=== PATIENT | female | born 1960 | race Caucasian/White ===

== ENCOUNTER 2016-11-10 04:10 | Inpatient (IN) | payer OTHER ==
[2016-11-10] MEDS ORDERED: IPRATROPIUM/ALBUTEROL 3 ML DEYVIAL ONE (04:25)
[2016-11-10] MEDS ORDERED: IPRATROPIUM/ALBUTEROL 3 ML DEYVIAL IH ONE (04:27)
--- NOTE | 2016-11-10 04:47 | CPEKG ---
Heart Rate: 96 RR Interval: 625 P-R Interval: 160 QRSD Interval: 80 QT Interval: 336 QTC Interval: 425 P Ashby: 59 QRS Ashby: 178 T Wave Ashby: -45 EKG Severity - ABNORMAL ECG - EKG Impression: SINUS RHYTHM EKG Impression: ATRIAL PREMATURE COMPLEX EKG Impression: CONSIDER RVH W/ SECONDARY REPOL ABNORMALITY Electronically Signed By: Marika Kasper 10-Nov-2016 07:40:18
[2016-11-10 04:58] LABS: ADD DIFF? NO; ADD MORPH? YES; ADD SCAN? NO; ATYPICAL LYMPHOCYTE FLAG 10 (0-99); FRAGMENT RBC FLAG 20 (0-99); LEFT SHIFT FLG 0 (0-99); LIPEMIA HEMOLYSIS FLAG 80 (0-99); MEAN CELL HEMOGLOBIN CONCENTR. 30.1 g/dL (32.4-36.7); MEAN CELL VOLUME 83.3 fL (81.5-99.8); MEAN PLATELET VOLUME 10.3 fL (8.7-11.7); PLATELET CLUMPS FLAG 0 (0-99); PLATELET COUNT 257 10^3/uL (150-400); RED BLOOD CELL COUNT 7.59 10^6/uL (4.18-5.33)
[2016-11-10 05:09] LABS: RED CELL DISTRIBUTION WIDTH 20.8 % (11.5-15.2)
[2016-11-10 05:11] LABS: HEMATOCRIT 63.2 % (38.0-47.0)
--- NOTE | 2016-11-10 05:13 | EDPHY ---
H & P Stated Complaint: sob HPI/ROS: HPI The patient presents with shortness of breath which has been present for the last 2 weeks, getting progressively worse. She lives in a small house and says just walking from her room to the bathroom causes dyspnea. She has to sleep in a recliner because she has some shortness of breath when she lays flat, it also bothers her knees. She says for the last 5 months she has had lower extremity edema, however over the last 1 week has noticed that she has swelling in her abdomen as well and this is making it hard for her to breathe. She denies any cough or chest pain. She says she has osteoarthritis of her knees though denies any other medical problems, she says she has not been to a doctor in 20 years and does not leave the house very much because she has osteoarthritis of her knees. She smokes 2 packs per day and has been a heavy cigarette smoker since the age of 10. REVIEW OF SYSTEMS Constitutional: No fever, no chills. Eyes: No discharge. ENT: No sore throat. Cardiovascular: See HPI Respiratory: See HPI Gastrointestinal: No abdominal pain, no vomiting. Genitourinary: No hematuria. Musculoskeletal: No back pain. Skin: No rashes. Neurological: No headache. PMHx: Osteoarthritis of both knees Soc Hx: Mostly homebound, used to work as a [employer], heavy tobacco use PHYSICAL General Appearance: Alert, mild respiratory distress Eyes: Pupils equal and round no pallor or injection ENT, Mouth: Mucous membranes moist Respiratory: Slightly tachypneic, no retractions, coarse breath sounds at both bases Cardiovascular: Regular rate and rhythm Gastrointestinal: Abdomen is soft and distended, there is no tenderness Neurological: A&O, moves all extremities Skin: Warm and dry, no rashes Musculoskeletal: Neck is supple non tender Extremities: symmetrical, lower extremities are diffusely erythematous and edematous without any pitting Psychiatric: Patient is oriented X 3, there is no agitation Source: Patient, Family - Personal History Current Tetanus/Diphtheria Vaccine: No Current Tetanus Diphtheria and Acellular Pertussis (TDAP): No - Medical/Surgical History Hx Asthma: Yes Hx Chronic Respiratory Disease: No Hx Diabetes: No Hx Cardiac Disease: No Hx Renal Disease: No Hx Cirrhosis: No Hx Alcoholism: No Hx HIV/AIDS: No Hx Splenectomy or Spleen Trauma: No Other PMH: osteo arthritis - Social History Smoking Status: Current every day smoker Constitutional: Initial Vital Signs Temperature (C) 36.7 C 11/10/16 04:20 Heart Rate 97 11/10/16 04:20 Respiratory Rate 30 H 11/10/16 04:20 Blood Pressure 148/83 H 11/10/16 04:20 O2 Sat (%) 79 L 11/10/16 04:20 O2 Delivery Mode Nasal Cannula O2 (L/minute) 4 Allergies/Adverse Reactions: codeine Allergy (Verified 11/10/16 04:18) diphenhydramine [From Benadryl] Allergy (Verified 11/10/16 04:18) naproxen Allergy (Verified 11/10/16 04:18) Home Medications: Medication Instructions Recorded Mucinex 11/10/16 Medical Decision Making - Diagnostics EKG Interpretation: EKG: Complete interpretation has been separately recorded in the [facility] archive. Summary impression: Right axis, T-wave inversions in 2, 3, AVF, V2 through V4 Imaging Results: Chest x-ray two view shows cardiomegaly with signs of pulmonary edema, interpreted by me, radiology interpretation is pending. Procedures: Bedside cardiac Ultrasound- performed and interpreted by me. Indication: Dyspnea Findings: Diminished EF with no pericardial effusion, dilated IVC, B lines are not present Impression: CHF likely ED Course/Re-evaluation: In the emergency room, she was placed on supplemental oxygen, she was given a DuoNeb with some improvement in her symptoms. Labs and studies were performed which were suggestive for CHF, as well as polycythemia which may be due to chronic hypoxia, she was given a dose of Lasix. Given her heavy smoking history, there may be a component of COPD as well. Given her hypoxia she will require admission, I have discussed the case with the hospitalist Dr. Payton Garcia who will admit the patient. Differential Diagnosis: This is a 56-year-old female with history of osteoarthritis, no significant other past medical history, however limited medical contacts, she presents with shortness of breath which is progressive over the last week associated with lower extremity and now abdominal edema. On exam, she is tachypneic, hypoxic, exhibiting signs of fluid overload. Differential diagnosis includes decompensated CHF, COPD with exacerbation pneumonia pulmonary embolism, renal or hepatic failure resulting in fluid overload. - Data Points Laboratory Results: Laboratory Results 11/10/16 04:27 11/10/16 04:27 11/10/16 11/10/16 04:27 04:27 WBC 10.38 10^3/uL H 10^3/uL (3.80-9.50) RBC 7.59 10^6/uL H 10^6/uL (4.18-5.33) Hgb 19.0 g/dL H g/dL (12.6-16.3) Hct 63.2 % H* % (38.0-47.0) MCV 83.3 fL fL (81.5-99.8) MCH 25.0 pg L pg (27.9-34.1) MCHC 30.1 g/dL L g/dL (32.4-36.7) RDW 20.8 % H % (11.5-15.2) Plt Count 257 10^3/uL 10^3/uL (150-400) MPV 10.3 fL fL (8.7-11.7) Neut % (Auto) 74.1 % % (39.3-74.2) Lymph % (Auto) 15.5 % % (15.0-45.0) [place] % (Auto) 7.4 % % (4.5-13.0) Eos % (Auto) 1.5 % % (0.6-7.6) Baso % (Auto) 0.5 % % (0.3-1.7) Nucleat RBC Rel Count 0.0 % % (0.0-0.2) Absolute Neuts (auto) 7.69 10^3/uL H 10^3/uL (1.70-6.50) Absolute Lymphs (auto) 1.61 10^3/uL 10^3/uL (1.00-3.00) Absolute Monos (auto) 0.77 10^3/uL 10^3/uL (0.30-0.80) Absolute Eos (auto) 0.16 10^3/uL 10^3/uL (0.03-0.40) Absolute Basos (auto) 0.05 10^3/uL 10^3/uL (0.02-0.10) Absolute Nucleated RBC 0.00 10^3/uL 10^3/uL (0-0.01) Immature Gran % 1.0 % % (0.0-1.1) Immature Gran # 0.10 10^3/uL 10^3/uL (0.00-0.10) Platelet Estimate ADEQUATE (ADEQ) Polychromasia 1+ H Hypochromasia 1+ H Sodium 138 mEq/L mEq/L (134-144) Potassium 4.8 mEq/L mEq/L (3.5-5.2) Chloride 101 mEq/L mEq/L (97-110) Carbon Dioxide 30 mEq/l mEq/l (22-31) Anion Gap 7 mEq/L L mEq/L (8-16) BUN 15 mg/dL mg/dL (7-23) Creatinine 0.7 mg/dL mg/dL (0.6-1.0) Estimated GFR > 60 Glucose 116 mg/dL H mg/dL (70-100) Calcium 9.5 mg/dL mg/dL (8.5-10.4) Troponin I 0.030 ng/mL ng/mL (0-0.034) NT-Pro-B Natriuret Pep 1740 pg/mL H pg/mL (0-125) Medications Given: Discontinued Medications Albuterol/Ipratropium (Duoneb) 3 ml IH EDNOW ONE Stop: 11/10/16 04:28 Last Admin: 11/10/16 04:25 Dose: 3 ml Departure - Departure Disposition: [facility] Inpatient Acute Clinical Impression: Hypoxia, Polycythemia Acute exacerbation of congestive heart failure Qualifiers: Congestive heart failure type: unspecified congestive heart failure type Qualified Code(s): I50.9 - Heart failure, unspecified Fluid overload Qualifiers: Hypervolemia type: unspecified Qualified Code(s): E87.70 - Fluid overload, unspecified Condition: Fair Referrals: NONE *PRIMARY CARE P,. [Primary Care Provider] - As per Instructions
[2016-11-10 05:18] LABS: ANION GAP 7 mEq/L (8-16); CALCIUM 9.5 mg/dL (8.5-10.4); CARBON DIOXIDE 30 mEq/l (22-31); CHLORIDE 101 mEq/L (97-110); CREATININE 0.7 mg/dL (0.6-1.0); GLOMERULAR FILTRATION RATE > 60; GLUCOSE 116 mg/dL (70-100); POTASSIUM 4.8 mEq/L (3.5-5.2); SODIUM 138 mEq/L (134-144)
[2016-11-10] MEDS ORDERED: FUROSEMIDE 20 MG/2 ML VIAL IVP ONE (05:52)
[2016-11-10 06:04] LABS: HYPOCHROMIA 1+; PLATELET ESTIMATE ADEQUATE (ADEQ); POLYCHROMASIA 1+
[2016-11-10] MEDS ORDERED: ALBUTEROL 3 ML DEYVIAL IH PRN (07:12)
[2016-11-10] MEDS ORDERED: HYDROmorphONE/DILAUDID 1 MG/ML SYR IVP PRN (07:12)
[2016-11-10] MEDS ORDERED: ACETAMINOPHEN 325 MG TAB PO PRN (07:12)
[2016-11-10] MEDS ORDERED: PROMETHAZINE HCL 25 MG TAB PO PRN (07:12)
[2016-11-10] MEDS ORDERED: NICOTINE POLACRILEX 2 MG GUM B PRN (07:12)
[2016-11-10] MEDS ORDERED: oxyCODONE IR 5 MG TAB PO PRN (07:12)
[2016-11-10] MEDS ORDERED: ONDANSETRON DISINTEGRATING 4 MG TAB PO PRN (07:12)
[2016-11-10] MEDS ORDERED: ZOLPIDEM TARTRATE 5 MG TAB PO PRN (07:12)
[2016-11-10] MEDS ORDERED: ONDANSETRON 4 MG/2 ML VIAL IVP PRN (07:12)
[2016-11-10] MEDS ORDERED: NICOTINE 21 MG/24 HR PATCH TD ONE (07:22)
[2016-11-10] MEDS: NICOTINE 21 MG/24 HR PATCH TD SCH (07:34)
--- NOTE | 2016-11-10 08:14 | PDGENHP ---
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 She initially attributed the swelling to haven taken advil but then noted it did not go away. She gets extremely short of breath when walking even a few steps. She does not really leave the house due to chronic knee pain and now worsening shortness of breath. She often notes wheezing and her notes that she at times looks cardozo/ashen when she is feeling sob. While in the ER, she went to the bathroom without her O2 on, and when she returned to her room she was noted to be cyanotic and O2 sats of 66%. She has had headache for the last month and also has had left sided flank pain that she believes to be kidney pain. She denies chest pain, she has chronic knee pain but no pain in her calves other than the skin feeling tight. History Information - Allergies/Home Medication List Allergies/Adverse Reactions: codeine Allergy (Verified 11/10/16 04:18) diphenhydramine [From Benadryl] Allergy (Verified 11/10/16 04:18) naproxen Allergy (Verified 11/10/16 04:18) Home Medications: Mucinex 11/10/16 [Last Taken Unknown] I have personally reviewed and updated: family history, medical history, social history, surgical history Past Medical History: chronic knee pain. longstanding tobacco use. no known medical issues but not seeing an MD x 30 years - Surgical History Additional surgical history: Left knee arthroscopy - Family History Positive for: mother with history of CAD younger than 65 (mother with PR at 60) , stroke (father with stroke, neck issues) - Social History Smoking Status: Current every day smoker (2 packs per day, smoking since 10 years old, 80-100 pack years) Tobacco Use: Cigarettes Alcohol Use: Rarely Drug Use: Marijuana Additional social history: , 4 children and 9 grandchildren all live out of state, patient does not work and is largely home bound Review of Systems ROS: 10pt was reviewed & negative except for what was stated in HPI & below Physical Exam Temp Pulse Resp BP Pulse Ox 36.9 C 91 20 100/70 88 L 11/10/16 07:36 11/10/16 07:36 11/10/16 07:36 11/10/16 07:36 11/10/16 07:36 O2 (L/minute) 4 Constitutional: appears nourished, chronically ill appearing Eyes: PERRL, scleral injection Ears, Nose, Mouth, Throat: moist mucous membranes, hearing normal Cardiovascular: regular rate and rhythym, no murmur, rub, or gallop, edema (2-3 + tense edema to the sacrum) Respiratory: no respiratory distress, reduced air movement, expiratory wheeze, inspiratory crackles Gastrointestinal: normoactive bowel sounds, soft, non-tender abdomen Genitourinary: no bladder tenderness Skin: warm, normal color Musculoskeletal: full muscle strength, muscular tenderness, No asymmetric calves Neurologic: AAOx3 Psychiatric: interacting appropriately, not anxious, not encephalopathic Lab Data & Imaging Review 11/10/16 04:27 11/10/16 04:27 WBC 10.38 10^3/uL (3.80-9.50) H 11/10/16 04:27 RBC 7.59 10^6/uL (4.18-5.33) H 11/10/16 04:27 Hgb 19.0 g/dL (12.6-16.3) H 11/10/16 04:27 Hct 63.2 % (38.0-47.0) H* 11/10/16 04:27 MCV 83.3 fL (81.5-99.8) 11/10/16 04:27 MCH 25.0 pg (27.9-34.1) L 11/10/16 04:27 MCHC 30.1 g/dL (32.4-36.7) L 11/10/16 04:27 RDW 20.8 % (11.5-15.2) H 11/10/16 04:27 Plt Count 257 10^3/uL (150-400) 11/10/16 04:27 MPV 10.3 fL (8.7-11.7) 11/10/16 04:27 Neut % (Auto) 74.1 % (39.3-74.2) 11/10/16 04:27 Lymph % (Auto) 15.5 % (15.0-45.0) 11/10/16 04:27 [place] % (Auto) 7.4 % (4.5-13.0) 11/10/16 04:27 Eos % (Auto) 1.5 % (0.6-7.6) 11/10/16 04:27 Baso % (Auto) 0.5 % (0.3-1.7) 11/10/16 04:27 Nucleat RBC Rel Count 0.0 % (0.0-0.2) 11/10/16 04:27 Absolute Neuts (auto) 7.69 10^3/uL (1.70-6.50) H 11/10/16 04:27 Absolute Lymphs (auto) 1.61 10^3/uL (1.00-3.00) 11/10/16 04:27 Absolute Monos (auto) 0.77 10^3/uL (0.30-0.80) 11/10/16 04:27 Absolute Eos (auto) 0.16 10^3/uL (0.03-0.40) 11/10/16 04:27 Absolute Basos (auto) 0.05 10^3/uL (0.02-0.10) 11/10/16 04:27 Absolute Nucleated RBC 0.00 10^3/uL (0-0.01) 11/10/16 04:27 Immature Gran % 1.0 % (0.0-1.1) 11/10/16 04:27 Immature Gran # 0.10 10^3/uL (0.00-0.10) 11/10/16 04:27 Platelet Estimate ADEQUATE (ADEQ) 11/10/16 04:27 Polychromasia 1+ H 11/10/16 04:27 Hypochromasia 1+ H 11/10/16 04:27 Sodium 138 mEq/L (134-144) 11/10/16 04:27 Potassium 4.8 mEq/L (3.5-5.2) 11/10/16 04:27 Chloride 101 mEq/L (97-110) 11/10/16 04:27 Carbon Dioxide 30 mEq/l (22-31) 11/10/16 04:27 Anion Gap 7 mEq/L (8-16) L 11/10/16 04:27 BUN 15 mg/dL (7-23) 11/10/16 04:27 Creatinine 0.7 mg/dL (0.6-1.0) 11/10/16 04:27 Estimated GFR > 60 11/10/16 04:27 Glucose 116 mg/dL (70-100) H 11/10/16 04:27 Calcium 9.5 mg/dL (8.5-10.4) 11/10/16 04:27 Troponin I 0.030 ng/mL (0-0.034) 11/10/16 04:27 NT-Pro-B Natriuret Pep 1740 pg/mL (0-125) H 11/10/16 04:27 Visualized and Interpreted Chest x-ray results: Yes Chest X-Ray results: other (CM, pulmonary edema) Visualized and Interpreted EKG results: Yes EKG Interpretation: Positive for: normal sinsus rhythm Assessment & Plan Assessment: 56 yo F with longstanding tobacco use hx presenting with acute hypoxic respiratory failure with o2 sats as low as 66% on RA in ER # acute hypoxic respiratory failure: likely more acute on chronic given evidence of likely chronicity with lower extremity edema, erythrocytosis and only relatively minor sxs despite o2 sats of 66%. Given tobacco hx, for sure underlying copd as next. Also suspect right sided heart failure/cor pulmonale. For now plan is for supplemental o2, IV lasix, bronchodilators, prednisone, azithromycin. CT versus CTA pending d dimer result for further evaluation of lung parenchyma and consideration for concurrent PE. Echo and BLE US pending. # copd with acute exacerbation: as above, not previously diagnosed. Duonebs, albuterol, pred, azithro. Further imaging likely warranted, pending d dimer result. # polycythemia: likely related to secondary erythrocytosis related to chronic hypoxia, will trend # acute right sided heart failure: in the setting of likely chronic profound hypoxia and possible contribution of joshua given hx of snoring and per patient apnea as a child. Echo pending, supplemental o2. Will need sleep study as an OP. IV lasix given in ER, will continue and aim for gentle diuresis as patient likely preload dependent with presumed cor pulmonale. # tobacco use and dependency: smoking 46 years, heavy smoker as above. Counseled regarding need for cessation, nicotine patch/gum while in house # dvt ppx: lmwh FC Patient new to my care. Old records reviewed and summarized as above. Care plan reviewed with ER doctor including plans for echo. Further hx obtained from patients present at bedside.
[2016-11-10 09:14] LABS: ALBUMIN 3.8 g/dL (3.5-5.0); BILIRUBIN,TOTAL 1.2 mg/dL (0.1-1.4); BILIRUBIN-CONJUGATED 0.6 mg/dL (0.0-0.5); BILIRUBIN-UNCONJUGATED 0.6 mg/dL (0.0-1.1); TOTAL PROTEIN 6.8 g/dL (6.3-8.2)
[2016-11-10] MEDS: AZITHROMYCIN IV 500 MG in D5W 250 ML IV SCH (10:44)
[2016-11-10] MEDS: predniSONE 20 MG TAB PO SCH (10:44)
[2016-11-10] MEDS: ENOXAPARIN 40 MG/0.4 ML SYR SC SCH (10:47)
[2016-11-10] MEDS: IPRATROPIUM/ALBUTEROL 3 ML DEYVIAL IH SCH ×3 (10:49→21:29)
[2016-11-10] MEDS: ACETYLCYSTEINE 10% 30 ML VIAL IH SCH ×3 (10:49→21:29)
[2016-11-10] MEDS ORDERED: IOPAMIDOL (ISOVUE 370) 100 ML BTL IV ONE (13:15)
[2016-11-10] MEDS ORDERED: DEXTROMETHORPHAN PO PRN (13:39)
[2016-11-10] MEDS ORDERED: GUAIFENESIN PO PRN (13:39)
[2016-11-10] MEDS ORDERED: [UNRECOGNIZED DRUG - OTHER] PO PRN (13:39)
[2016-11-10] MEDS ORDERED: ASPIRIN 325 MG TAB PO PRN (13:39)
--- NOTE | 2016-11-10 13:43 | ECHO ---
[id number] + + [phone] : : [place] [address] : : [phone] + + Adult Echocardiographic Report + ------+ :Name: CORTNEY KUHN LStudy Date: 11/10/2016 10:05 AM : : Hospital Admission Number: [id number] Locatio n: 215: :: 1960 Gender: Female Height: 66 in : :Age: 56 yrs Race: WH Weight: 250 lb : :Reason For Study: COPD/lower extremity edema/question CHF/cor : :pulmonale BSA: 2.2 meters 2 : + ------+ MMode/2D Measurements \T\ Calculations IVSd: 1.1 cm LVIDd: 5.5 cm FS: 38.7 % Ao root diam: 3.7 cm LVPWd: 1.1 cm LVIDs: 3.4 cm EDV(Teich): 146.3 ml LA dimension: 3.7 cm ESV(Teich): 46.2 ml EF(Teich): 68.4 % Normal Measurement Values: + + :LVIDd (3.5-5.7cm) IVSd (0.6-1.1cm) LVPWd (0.6-1.1cm) Aortic Root (2.0-3.7cm)Left Atrium (1.5-4.0cm): :LV Vol(d) (76-115ml) LV Vol(s) (29-48ml) Ejec Fraction (50-65%)PV Ton (0.6- 1.2m/s) TV Ton (0.4-1.0m/s) : :MV E Ton (0.8-1.0m/s)MV A Ton (0.3-1.0m/s)LVOT Ton (0.7-1.2m/s) Asc Ao Ton ( 0.9-1.8m/s) : + + Doppler Measurements \T\ Calculations MV E max ton: 90.3 cm/sec Ao mean P.6 mmHg TR max ton: 306.8 cm/sec MV A max ton: 83.9 cm/sec Ao V2 mean: 130.0 cm/sec TR max P.6 mmHg MV E/A: 1.1 Ao V2 VTI: 35.0 cm RAP systole: 10.0 mmHg RVSP(TR): 47.6 mmHg Left Ventricle The left ventricle is normal in size. There is mild concentric left ventricular hypertrophy. Left ventricular systolic function is normal. Ejection Fraction = 65-70%. Grade I diastolic dysfunction with elevated LV filling pressures. No regional wall motion abnormalities noted. Right Ventricle The right ventricle is moderately dilated. The right ventricular systolic function is moderately reduced. Atria The left atrial size is normal. The right atrium is mildly dilated. Mitral Valve The mitral valve is normal in structure and function. There is no evidence of mitral valve prolapse. There is no mitral valve stenosis. Tricuspid Valve Normal tricuspid valve. There is mild tricuspid regurgitation. Right ventricular systolic pressure is 48mmHg. There is Doppler evidence for mild pulmonary hypertension. Aortic Valve The aortic valve is trileaflet. The aortic valve opens well. There is no aortic stenosis. There is no aortic insufficiency. Pulmonic Valve The pulmonic valve is normal in structure and function. There is no pulmonic valvular regurgitation. Great Vessels The aortic root is normal size. Pericardium/Pleural There is no pericardial effusion. Conclusion A complete two-dimensional transthoracic echocardiogram was performed (2D, M-mode, Doppler and color flow Doppler). Left ventricular systolic function is normal. There is mild concentric left ventricular hypertrophy. Ejection Fraction = 65-70%. Grade I diastolic dysfunction with elevated LV filling pressures The right ventricle is moderately dilated. The right ventricular systolic function is moderately reduced. The right atrium is mildly dilated. There is mild tricuspid regurgitation. Right ventricular systolic pressure is 48mmHg. There is Doppler evidence for mild pulmonary hypertension. No prior echo Final Reading Physician: Dr Sarah Martin electronically signed on 11/10/2016 01:41 PM Ordering Physician: Payton Garcia Performed By: Hodan Zelaya, MATHIEUCS
--- NOTE | 2016-11-10 16:01 | HOSPPROG ---
Hospitalist Progress Note Assessment/Plan: 56 yo F with longstanding tobacco use hx presenting with acute hypoxic respiratory failure with o2 sats as low as 66% on RA in ER # suspect acute on chronic hypoxic respiratory failure - continue supplemental o2, IV lasix, bronchodilators, prednisone, azithromycin. - CTA chest was ordered given her positive D-dimer that was negative for PE # copd with acute exacerbation - plan as per above # polycythemia: likely related to secondary erythrocytosis related to chronic hypoxia, will trend #Prominent mediastinal and hilar lymph nodes and an indeterminate left adrenal nodule - interval 3 month follow-up of the hilar lymphadenopathy should be done as well as further followup of her adrenal lesion # acute right sided heart failure: in the setting of likely chronic profound hypoxia and possible contribution of joshua given hx of snoring and per patient apnea as a child. Echo is consistent with pulmonary hypertension - outpatient sleep study # tobacco use and dependency: smoking 46 years, heavy smoker as above. Counseled regarding need for cessation, nicotine patch/gum while in house # dvt ppx: lmwh FC Subjective: improved shortness of breath since starting supplemental oxygen. denies chest pain Objective: Vital Signs Temp Pulse Resp BP Pulse Ox 37.1 C 88 16 116/62 93 11/10/16 12:51 11/10/16 12:51 11/10/16 12:51 11/10/16 12:51 11/10/16 12:51 11/09/16 11/10/16 11/11/16 05:59 05:59 05:59 Output Total 1550 Balance -1550 - Physical Exam Constitutional: no apparent distress, appears nourished, not in pain Cardiovascular: regular rate and rhythym, no murmur, rub, or gallop Respiratory: no respiratory distress, reduced air movement, expiratory wheeze ICD10 Worksheet Patient Problems: Problems Problem Status Onset Acute exacerbation of congestive heart failure Acute Hypoxia Acute Fluid overload Acute Polycythemia Acute
[2016-11-10] MEDS: GUAIFENESIN/DM 10 ML UDCUP PO PRN (19:08)
[2016-11-10] MEDS: guaiFENesin 600 MG TAB.ER PO SCH (21:13)
[2016-11-11 05:00] LABS: % IMMATURE GRANULYOCYTES 0.7 % (0.0-1.1); ABSOLUTE IMMATURE GRANULOCYTES 0.07 10^3/uL (0.00-0.10); ADD DIFF? NO; ADD MORPH? YES; ADD SCAN? NO; ATYPICAL LYMPHOCYTE FLAG 0 (0-99); FRAGMENT RBC FLAG 20 (0-99); HEMATOCRIT 59.9 % (38.0-47.0); HEMOGLOBIN 17.3 g/dL (12.6-16.3); LEFT SHIFT FLG 0 (0-99); LIPEMIA HEMOLYSIS FLAG 70 (0-99); MEAN CELL HEMOGLOBIN 24.7 pg (27.9-34.1); MEAN CELL VOLUME 85.7 fL (81.5-99.8); MEAN PLATELET VOLUME 10.5 fL (8.7-11.7); PLATELET CLUMPS FLAG 0 (0-99); PLATELET COUNT 231 10^3/uL (150-400); RED BLOOD CELL COUNT 6.99 10^6/uL (4.18-5.33)
[2016-11-11 05:04] LABS: MEAN CELL HEMOGLOBIN CONCENTR. 28.9 g/dL (32.4-36.7); RED CELL DISTRIBUTION WIDTH 20.5 % (11.5-15.2)
[2016-11-11 05:06] LABS: ANION GAP 9 mEq/L (8-16); CALCIUM 8.6 mg/dL (8.5-10.4); CARBON DIOXIDE 32 mEq/l (22-31); CHLORIDE 102 mEq/L (97-110); CREATININE 0.7 mg/dL (0.6-1.0); GLOMERULAR FILTRATION RATE > 60; GLUCOSE 93 mg/dL (70-100); MAGNESIUM 2.3 mg/dL (1.6-2.3); POTASSIUM 4.7 mEq/L (3.5-5.2); SODIUM 143 mEq/L (134-144)
[2016-11-11] MEDS: IPRATROPIUM/ALBUTEROL 3 ML DEYVIAL IH SCH ×4 (05:07→21:59)
[2016-11-11] MEDS: ACETYLCYSTEINE 10% 30 ML VIAL IH SCH ×4 (05:07→21:59)
[2016-11-11 05:24] LABS: HYPOCHROMIA 1+; MACROCYTES 1+; MICROCYTES 1+; PLATELET ESTIMATE ADEQUATE (ADEQ); POLYCHROMASIA 1+
[2016-11-11] MEDS ORDERED: Herbals/Supplements -Info Only PO SCH (09:00)
[2016-11-11] MEDS: NICOTINE 21 MG/24 HR PATCH TD SCH (09:09)
[2016-11-11] MEDS: predniSONE 20 MG TAB PO SCH (09:10)
[2016-11-11] MEDS: guaiFENesin 600 MG TAB.ER PO SCH ×2 (09:11→21:35)
[2016-11-11] MEDS: ACETAMINOPHEN 325 MG TAB PO SCH (09:11)
[2016-11-11] MEDS: ENOXAPARIN 40 MG/0.4 ML SYR SC SCH (09:11)
[2016-11-11] MEDS: AZITHROMYCIN IV 500 MG in D5W 250 ML IV SCH (09:14)
--- NOTE | 2016-11-11 11:18 | HOSPPROG ---
Hospitalist Progress Note Assessment/Plan: 56 yo F with longstanding tobacco use hx presenting with acute hypoxic respiratory failure with o2 sats as low as 66% on RA in ER # suspect acute on chronic hypoxic respiratory failure due to cor pulmonale - continue supplemental o2, IV lasix, bronchodilators,will prednisone & azithromycin. - CTA chest was ordered given her positive D-dimer that was negative for PE # suspected underlying copd unsure of acute exacerbation - plan as per above # polycythemia: likely related to secondary erythrocytosis related to chronic hypoxia, will trend #Prominent mediastinal and hilar lymph nodes and an indeterminate left adrenal nodule - interval 3 month follow-up of the hilar lymphadenopathy should be done as well as further followup of her adrenal lesion # acute right sided heart failure: in the setting of likely chronic profound hypoxia and possible contribution of joshua given hx of snoring and per patient apnea as a child. Echo is consistent with pulmonary hypertension - outpatient sleep study # tobacco use and dependency: smoking 46 years, heavy smoker as above. Counseled regarding need for cessation, nicotine patch/gum while in house # dvt ppx: lmwh FC Subjective: continues to have shortness of breath and leg swelling. no fever or chills. wants to quit smoking Objective: Vital Signs Temp Pulse Resp BP Pulse Ox 36.7 C 83 18 107/64 88 L 11/11/16 07:40 11/11/16 07:40 11/11/16 07:40 11/11/16 07:40 11/11/16 07:40 Laboratory Results 11/11/16 04:16 11/11/16 04:16 11/10/16 11/11/16 11/12/16 05:59 05:59 05:59 Intake Total 1870 Output Total 2600 Balance -730 - Physical Exam Constitutional: no apparent distress, appears nourished, not in pain, chronically ill appearing Cardiovascular: regular rate and rhythym, no murmur, rub, or gallop, edema ( bilat legs and ankles) Respiratory: no respiratory distress, inspiratory crackles, No rhonchi Gastrointestinal: normoactive bowel sounds, soft, non-tender abdomen, no palpable masses, No guarding, No rebound Skin: warm, erythema (bilat legs) Neurologic: AAOx3, sensation intact bilaterally ICD10 Worksheet Patient Problems: Problems Problem Status Onset Acute exacerbation of congestive heart failure Acute Hypoxia Acute Fluid overload Acute Polycythemia Acute
[2016-11-11] MEDS: FUROSEMIDE 20 MG/2 ML VIAL IVP SCH (14:20)
[2016-11-11] MEDS: GUAIFENESIN/DM 10 ML UDCUP PO PRN (21:35)
[2016-11-11] MEDS: HYDROCODONE/APAP 5/325 TAB PO PRN (21:35)
[2016-11-12 04:33] LABS: % IMMATURE GRANULYOCYTES 0.5 % (0.0-1.1); ABSOLUTE IMMATURE GRANULOCYTES 0.06 10^3/uL (0.00-0.10); ADD DIFF? NO; ADD MORPH? YES; ADD SCAN? NO; ATYPICAL LYMPHOCYTE FLAG 0 (0-99); FRAGMENT RBC FLAG 20 (0-99); LEFT SHIFT FLG 0 (0-99); LIPEMIA HEMOLYSIS FLAG 70 (0-99); MEAN CELL HEMOGLOBIN 25.3 pg (27.9-34.1); MEAN CELL VOLUME 87.6 fL (81.5-99.8); MEAN PLATELET VOLUME 10.7 fL (8.7-11.7); PLATELET CLUMPS FLAG 20 (0-99); PLATELET COUNT 229 10^3/uL (150-400); RED BLOOD CELL COUNT 7.12 10^6/uL (4.18-5.33)
[2016-11-12 04:49] LABS: ANION GAP 7 mEq/L (8-16); CALCIUM 9.1 mg/dL (8.5-10.4); CARBON DIOXIDE 37 mEq/l (22-31); CHLORIDE 99 mEq/L (97-110); CHOLESTEROL 132 mg/dL (140-220); CHOLESTEROL/HDL RATIO 4.55 RATIO (1.00-4.44); CREATININE 0.6 mg/dL (0.6-1.0); GLOMERULAR FILTRATION RATE > 60; GLUCOSE 88 mg/dL (70-100); HIGH DENSITY LIPOPROTEIN 29 mg/dL (40-85); LOW DENSITY LIPOPROTEIN 87 mg/dL (80-100); MAGNESIUM 2.4 mg/dL (1.6-2.3); NON-HIGH DENSITY LIPOPROTEIN 103 mg/dL (90-129); SODIUM 143 mEq/L (134-144); TRIGLYCERIDE 84 mg/dL (35-135); VERY LOW DENSITY LIPOPROTEINS 16 mg/dL (8-25)
[2016-11-12 04:57] LABS: MEAN CELL HEMOGLOBIN CONCENTR. 28.8 g/dL (32.4-36.7); RED CELL DISTRIBUTION WIDTH 20.5 % (11.5-15.2)
[2016-11-12 04:58] LABS: HEMATOCRIT 62.4 % (38.0-47.0)
[2016-11-12 05:02] LABS: PLATELET ESTIMATE ADEQUATE (ADEQ)
[2016-11-12 05:04] LABS: MACROCYTES 1+; MICROCYTES 1+; POLYCHROMASIA 1+
[2016-11-12] MEDS: IPRATROPIUM/ALBUTEROL 3 ML DEYVIAL IH SCH ×4 (05:17→21:56)
[2016-11-12] MEDS: ACETYLCYSTEINE 10% 30 ML VIAL IH SCH ×2 (05:18→13:00)
[2016-11-12] MEDS: HYDROCODONE/APAP 5/325 TAB PO PRN ×2 (06:39→19:57)
[2016-11-12] MEDS: FUROSEMIDE 20 MG/2 ML VIAL IVP SCH (09:58)
[2016-11-12] MEDS: NICOTINE 21 MG/24 HR PATCH TD SCH (09:58)
[2016-11-12] MEDS: ACETAMINOPHEN 325 MG TAB PO SCH (09:58)
[2016-11-12] MEDS: ENOXAPARIN 40 MG/0.4 ML SYR SC SCH (10:00)
[2016-11-12] MEDS: guaiFENesin 600 MG TAB.ER PO SCH ×2 (10:00→19:57)
[2016-11-12] MEDS ORDERED: FUROSEMIDE 20 MG/2 ML VIAL IVP ONE (10:45)
[2016-11-12] MEDS ORDERED: FUROSEMIDE 20 MG/2 ML VIAL IVP SCH (11:22)
--- NOTE | 2016-11-12 11:29 | HOSPPROG ---
Hospitalist Progress Note Assessment/Plan: 56 yo F with longstanding tobacco use hx presenting with acute hypoxic respiratory failure with o2 sats as low as 66% on RA in ER # suspect acute on chronic hypoxic respiratory failure due to cor pulmonale with mild pulmonary hypertension by echo - continue supplemental o2, IV lasix, bronchodilators - CTA chest was ordered given her positive D-dimer that was negative for PE -I discussed the case with Dr. Rodriguez who will see the patient in consultation # acute right sided heart failure with increasing weight: in the setting of likely chronic profound hypoxia and possible contribution of joshua given hx of snoring and per patient apnea as a child. Echo is consistent with pulmonary hypertension - fluid restrict -increase lasix to 40mg iv bid -daily weights -outpatient sleep study # suspected underlying copd unsure of acute exacerbation - continue to monitor off of prednisone # polycythemia: likely related to secondary erythrocytosis related to chronic hypoxia, will trend #Prominent mediastinal and hilar lymph nodes and an indeterminate left adrenal nodule - interval 3 month follow-up of the hilar lymphadenopathy should be done as well as further followup of her adrenal lesion # tobacco use and dependency: smoking 46 years, heavy smoker as above. Counseled regarding need for cessation, nicotine patch while in house -start Wellbutrin as well # dvt ppx: lmwh FC Subjective: still with shortness of breath. no chest pain. legs are still swollen Objective: Vital Signs Temp Pulse Resp BP Pulse Ox 36.9 C 88 12 124/65 H 90 L 11/12/16 07:17 11/12/16 07:17 11/12/16 07:17 11/12/16 07:17 11/12/16 07:17 Laboratory Results 11/12/16 04:09 11/12/16 04:09 11/11/16 11/12/16 11/13/16 05:59 05:59 05:59 Intake Total 1870 4100 Output Total 2600 3100 1000 Balance -730 1000 -1000 - Physical Exam Constitutional: chronically ill appearing, obese Ears, Nose, Mouth, Throat: moist mucous membranes, hearing normal, ears appear normal, no oral mucosal ulcers Cardiovascular: regular rate and rhythym, no murmur, rub, or gallop Respiratory: no respiratory distress, no rales or rhonchi, clear to auscultation , No rhonchi Gastrointestinal: normoactive bowel sounds, soft, non-tender abdomen, no palpable masses Genitourinary: no bladder fullness, no bladder tenderness, no renal bruits Skin: erythema (bilat legs) Neurologic: AAOx3, sensation intact bilaterally ICD10 Worksheet Patient Problems: Problems Problem Status Onset Acute exacerbation of congestive heart failure Acute Hypoxia Acute Fluid overload Acute Polycythemia Acute
[2016-11-12] MEDS: FUROSEMIDE 40 MG/4 ML VIAL IVP SCH ×2 (12:46→15:46)
[2016-11-12] MEDS: buPROPion SR 150 MG TAB PO SCH (12:55)
[2016-11-12] MEDS: AZITHROMYCIN 250 MG TAB PO SCH (12:55)
--- NOTE | 2016-11-12 13:31 | GCON ---
[f rep st] CONSULTATION CHEST CONSULTATION REASON FOR CONSULTATION: Chronic obstructive pulmonary disease, acute exacerbation. Pulmonary hype rtension. HISTORY OF PRESENT ILLNESS: The patient is a 56-year-old white female with extensive past medical h istory, including tobacco abuse, chronic knee pain, morbid obesity. She presented to the emergency room with complaints of breathlessness. This occurred over 2 weeks' time. Her cough is productive of thick, tenacious secretions. There is no hemoptysis. She denies any chest pain, pleuritic-type chest pain, or angina equivalent. No fever. No night sweats. Since admission, she has had minimal improvement. She is profoundly hypoxemic and cyanotic when coughing. Echocardiogram and CT scan o f the chest have been performed. PAST MEDICAL HISTORY: Significant for chronic knee pain, tobacco abuse. ALLERGIES: No known allergies to medications. SOCIAL HISTORY: Npm-stnd-y-day smoking history for over 40 years and she quit 4 days ago. No signi ficant alcohol use. Occasional marijuana use. She is , lives at home with her , has good family support. She has not seen a doctor in over 30 years. PHYSICAL EXAMINATION: VITAL SIGNS: Blood pressure is 104/57. Pulse is 91, respirations 17, temper ature 36.5, oxygen saturation 90% on 10 L. GENERAL: She is a morbidly obese 56-year-old white fema le who is in mild respiratory distress. HEENT: Eyes are NABIL, EOMI. Throat shows no erythema or t onsillar hypertrophy. NECK: Supple. There is no cervical adenopathy. HEART: Regular rate and rh ythm with a 2/6 systolic murmur at the left sternal border without radiation. There is a loud P2 co mponent. LUNGS: Diminished breath sounds, few scattered rhonchi, and moderate prolongation of expi ratory phase. There is no wheeze present. ABDOMEN: Soft, nontender. Bowel sounds are present. E XTREMITIES: No clubbing, cyanosis. There is 2+ lower extremity edema. LABORATORIES: White count is 11.6, hemoglobin of 18, hematocrit 62, platelet count 229. Sodium 143 , potassium 5.0, chloride 99, CO2 37, BUN 16, creatinine 0.6. Glucose is 88. TSH elevated at 6.7. CT angiogram of the chest, dated 11/10/16, shows no evidence of PE but shows some bronchitis with at electasis, possible coronary artery disease, enlarged pulmonary artery. Echocardiogram, dated 11/10/16, shows an ejection fraction of 65% to 70%. Right ventricular systoli c pressure is 48. IMPRESSION: 1. Chronic obstructive pulmonary disease with acute exacerbation likely. 2. Probable obstructive sleep apnea. 3. Moderate pulmonary hypertension. 4. Polycythemia. 5. Morbid obesity. 6. Tobacco abuse. RECOMMENDATIONS: 1. We will start IV steroids, consisting of Solu-Medrol 125 q.6. 2. We will start the patient on azithromycin 250 mg per day. 3. Aggressive pulmonary toilet. In this regard, we will increase her Mucomyst to 20% and add an Ac apella or a vest mucus clearing device. 4. PT and OT with ambulation. 5. The patient should follow up with a director sales training after discharge, as she will need an outpatien t sleep study. Thank you very much for allowing me to participate in the care of this interesting patient. We will follow along with you. /[id number]/MODL
[2016-11-12] MEDS: ACETYLCYSTEINE 20% IH/PO 30 ML VIAL IH SCH ×2 (17:25→21:56)
[2016-11-12] MEDS: methylPREDNISolone SOD SUCC 125 MG/2 ML VIAL IVP SCH ×2 (18:15→23:09)
[2016-11-13 03:35] LABS: BICARBONATE 40 mEq/L (22-26); PO2 66 mmHg (65-75)
[2016-11-13 04:18] LABS: % IMMATURE GRANULYOCYTES 0.5 % (0.0-1.1); ABSOLUTE IMMATURE GRANULOCYTES 0.04 10^3/uL (0.00-0.10); ADD DIFF? NO; ADD MORPH? YES; ADD SCAN? NO; ATYPICAL LYMPHOCYTE FLAG 0 (0-99); FRAGMENT RBC FLAG 20 (0-99); HEMOGLOBIN 17.9 g/dL (12.6-16.3); LEFT SHIFT FLG 0 (0-99); LIPEMIA HEMOLYSIS FLAG 70 (0-99); MEAN CELL VOLUME 86.9 fL (81.5-99.8); MEAN PLATELET VOLUME 10.6 fL (8.7-11.7); PLATELET CLUMPS FLAG 10 (0-99); PLATELET COUNT 223 10^3/uL (150-400); RED BLOOD CELL COUNT 7.16 10^6/uL (4.18-5.33)
[2016-11-13 04:20] LABS: MEAN CELL HEMOGLOBIN CONCENTR. 28.8 g/dL (32.4-36.7); RED CELL DISTRIBUTION WIDTH 20.3 % (11.5-15.2)
[2016-11-13 04:25] LABS: HEMATOCRIT 62.2 % (38.0-47.0)
[2016-11-13 04:35] LABS: CALCIUM 9.1 mg/dL (8.5-10.4); CHLORIDE 94 mEq/L (97-110); CREATININE 0.6 mg/dL (0.6-1.0); GLOMERULAR FILTRATION RATE > 60; GLUCOSE 189 mg/dL (70-100); MAGNESIUM 2.3 mg/dL (1.6-2.3); POTASSIUM 4.9 mEq/L (3.5-5.2); SODIUM 141 mEq/L (134-144)
[2016-11-13 04:38] LABS: PCO2 76 mmHg (34-38)
[2016-11-13 04:39] LABS: TCO2 43 mEq/L (23-27)
[2016-11-13 04:47] LABS: ANION GAP 7 mEq/L (8-16); CARBON DIOXIDE 40 mEq/l (22-31)
[2016-11-13] MEDS: ACETYLCYSTEINE 20% IH/PO 30 ML VIAL IH SCH ×4 (04:51→20:55)
[2016-11-13] MEDS: IPRATROPIUM/ALBUTEROL 3 ML DEYVIAL IH SCH ×4 (04:51→20:55)
[2016-11-13 05:05] LABS: MACROCYTES 1+; MICROCYTES 1+; PLATELET ESTIMATE ADEQUATE (ADEQ); POLYCHROMASIA 1+
[2016-11-13] MEDS: methylPREDNISolone SOD SUCC 125 MG/2 ML VIAL IVP SCH ×4 (05:53→23:53)
[2016-11-13] MEDS: ENOXAPARIN 40 MG/0.4 ML SYR SC SCH ×2 (08:20→21:16)
[2016-11-13] MEDS: FUROSEMIDE 40 MG/4 ML VIAL IVP SCH ×2 (08:20→16:37)
[2016-11-13] MEDS: buPROPion SR 150 MG TAB PO SCH (08:21)
[2016-11-13] MEDS: ACETAMINOPHEN 325 MG TAB PO SCH (08:21)
[2016-11-13] MEDS: NICOTINE 21 MG/24 HR PATCH TD SCH (08:21)
[2016-11-13] MEDS: AZITHROMYCIN 250 MG TAB PO SCH (08:21)
[2016-11-13] MEDS: guaiFENesin 600 MG TAB.ER PO SCH ×2 (08:21→21:16)
[2016-11-13] MEDS ORDERED: ALTEPLASE 2 MG VIAL IVP PRN (10:42)
[2016-11-13] MEDS: HYDROCODONE/APAP 5/325 TAB PO PRN ×2 (11:10→21:16)
--- NOTE | 2016-11-13 13:04 | HOSPPROG ---
Hospitalist Progress Note Assessment/Plan: 56 yo F with longstanding tobacco use hx presenting with acute hypoxic respiratory failure with o2 sats as low as 66% on RA in ER # suspect acute on chronic hypoxic respiratory failure due to cor pulmonale with mild pulmonary hypertension by echo with worsening hypoxemia possibly secondary to decreased respiratory drive in light of high flow o2 - continue supplemental o2, IV lasix, bronchodilators - CTA chest was ordered given her positive D-dimer that was negative for PE -I discussed the case with Dr. Sandy who plans to trial provera in an attempt to increase resp drive # acute right sided heart failure with increasing weight (Echo consistent with pulmonary hypertension) - fluid restrict -continue lasix 40mg iv bid -daily weights -outpatient sleep study #reported hallucinations possibly secondary to steroids -Dr. Sandy is aware and plans to decrease steroid dose # suspected copd exacerbation - continue iv solumedrol and care per pulm # polycythemia: likely secondary due to chronic hypoxia -therapeutic phlebotomy ordered for today #Prominent mediastinal and hilar lymph nodes and an indeterminate left adrenal nodule - interval 3 month follow-up of the hilar lymphadenopathy should be done as well as further followup of her adrenal lesion # tobacco use and dependency: smoking 46 years, heavy smoker as above. Counseled regarding need for cessation, nicotine patch while in house -I offered to start Wellbutrin which the patient is not interested in taking # dvt ppx: lmwh FC Pt is high risk Subjective: still with shortness of breath. mild improvement in leg swelling. no chest pain. no fever. reports some hallucinations Objective: Vital Signs Temp Pulse Resp BP Pulse Ox 37.2 C 94 17 125/61 H 89 L 11/13/16 07:05 11/13/16 11:38 11/13/16 11:38 11/13/16 11:38 11/13/16 11:38 Laboratory Results 11/13/16 04:10 11/13/16 04:10 11/12/16 11/13/16 11/14/16 05:59 05:59 05:59 Intake Total 4100 240 Output Total 3100 4075 Balance 1000 -3835 Laboratory Tests 11/13/16 03:26 Patient Temperature 36.1 pCO2 76 H* pO2 66 Total CO2 43 H* ABG pH 7.34 L - Physical Exam Constitutional: chronically ill appearing Cardiovascular: regular rate and rhythym, no murmur, rub, or gallop, edema Respiratory: no respiratory distress, no rales or rhonchi, clear to auscultation , No expiratory wheeze Gastrointestinal: normoactive bowel sounds, soft, non-tender abdomen, no palpable masses Skin: no rashes or abrasions, no fluctuance, no induration Neurologic: AAOx3, sensation intact bilaterally Psychiatric: interacting appropriately, not anxious, not encephalopathic, thought process linear ICD10 Worksheet Patient Problems: Problems Problem Status Onset Acute exacerbation of congestive heart failure Acute Hypoxia Acute Fluid overload Acute Polycythemia Acute
[2016-11-13] MEDS: medroxyPROGESTERone 10 MG TAB PO SCH (13:17)
--- NOTE | 2016-11-13 14:50 | PDINTPN ---
Hostel Manager Progress Note Assessment/Plan: Assessment/plan: 56 F admitted 11/10/16 with SOB, found to have acute on chronic respiratory failure with cor pulmonale, severe hypoxia (66% RA on admission) and anasarca. She has a significant smoking history and now presumed COPD as well as OG/OHS with severe erythrocytosis. New to me 11/13/16. * Acute on chronic respiratory failure with hypoxia and hypercapnia- This likely the result of COPD/OG overlap syndrome. Her CXR shows mostly hypoventilation and some atelectasis but no juan carlos PNA by my read. Continue O2 support targeting sats of 89-94% to avoid worsening CO2 retension * COPD- stable at the moment without obvious wheezing on solumedrol, duoneb, proventil and mucomyst. We can likely reduce her steroids to 60/ day and stress IS, acappella, OOB as tolerated, etc. * OG- she clearly needs an outpatient sleep study, but reasonable to continue with QHS Bipap. Patient willing to keep trying. This is plus COPD and chronic hypoxemia are likely major players in her cor pulmonale. * OHS- will start Provera 20 TID today as respiratory stimulant. Discussed small clot risk. Should get better with nightly Bipap. * Cor pulmonale/PH- as a result of untreated severe hypoxemia, COPD, OG/OHS with contributions from grade I diastolic dysfunction. Not PAH so no PAH- specific therapy (eg ERas, PDE inhibitors, etc). Agree with current diuretics but don't feel increased dose needed to avoid ELEANOR, hypotension, etc. * Venous stasis changes in bilateral LE- I don't think this is cellulitis. * Erythrocytosis- no doubt 2/2 chronic hypoxemia and at risk for stasis complications such as CVA, [place]. Will phlebotomize 250 mL today with target hct < 60. * Objective: Vital Signs Temp Pulse Resp BP Pulse Ox 37.2 C 94 17 125/61 H 89 L 11/13/16 07:05 11/13/16 11:38 11/13/16 11:38 11/13/16 11:38 11/13/16 11:38 Laboratory Results 11/13/16 04:10 11/13/16 04:10 11/12/16 11/13/16 11/14/16 05:59 05:59 05:59 Intake Total 4100 240 Output Total 0721 6082 Balance 1000 -3835 Physical Exam - Physical Exam General Appearance: alert, mild distress, obese EENT: PERRL/EOMI Neck: full range of motion, supple Respiratory: lungs clear, decreased breath sounds, No rales, No stridor, No wheezing Cardiac/Chest: normal peripheral pulses, regular rate, rhythm, edema Abdomen: non-tender, soft, No distended, No guarding Skin: warm/dry, other (bilateral LE venous stasis changes of erythema) Lymphatic: no adenopathy Extremities: normal range of motion, non-tender, pedal edema Neuro/Psych: alert, normal mood/affect, oriented x 3 ICD10 Worksheet Patient Problems: Problems Problem Status Onset Acute exacerbation of congestive heart failure Acute Fluid overload Acute Hypoxia Acute Polycythemia Acute
[2016-11-13] MEDS ORDERED: LACTULOSE 20 GM/30 ML UDCUP PO PRN (16:49)
[2016-11-13] MEDS ORDERED: MAGNESIUM HYDROXIDE 30 ML UDCUP PO PRN (16:49)
[2016-11-13] MEDS ORDERED: POLYETHYLENE GLYCOL 3350 17 GM PKT PO PRN (16:49)
[2016-11-13] MEDS ORDERED: BISACODYL 10 MG SUPP PR PRN (16:49)
[2016-11-13] MEDS: SENNOSIDES/DOCUSATE SODIUM TAB PO SCH ×2 (16:59→21:20)
[2016-11-14] MEDS: IPRATROPIUM/ALBUTEROL 3 ML DEYVIAL IH SCH ×4 (05:24→22:12)
[2016-11-14] MEDS: ACETYLCYSTEINE 20% IH/PO 30 ML VIAL IH SCH ×3 (05:25→17:32)
[2016-11-14] MEDS ORDERED: PROTOCOL MAGNESIUM 1 DOSE IV PRN (07:20)
[2016-11-14] MEDS ORDERED: PROTOCOL K PHOSPHATE 1 DOSE IV PRN (07:20)
[2016-11-14] MEDS ORDERED: PROTOCOL CALCIUM 1 DOSE IV PRN (07:20)
[2016-11-14] MEDS ORDERED: PROTOCOL POTASSIUM 1 DOSE MISC PRN (07:20)
[2016-11-14 08:11] LABS: IONIZED CALCIUM 1.26 MMOL/L (1.12-1.30)
[2016-11-14] MEDS: medroxyPROGESTERone 10 MG TAB PO SCH (08:20)
[2016-11-14] MEDS: FUROSEMIDE 40 MG/4 ML VIAL IVP SCH ×2 (08:20→16:11)
[2016-11-14] MEDS: NICOTINE 21 MG/24 HR PATCH TD SCH (08:21)
[2016-11-14] MEDS: buPROPion SR 150 MG TAB PO SCH ×2 (08:21→10:18)
[2016-11-14] MEDS: SENNOSIDES/DOCUSATE SODIUM TAB PO SCH ×2 (08:21→20:41)
[2016-11-14] MEDS: guaiFENesin 600 MG TAB.ER PO SCH ×2 (08:21→20:39)
[2016-11-14] MEDS: ACETAMINOPHEN 325 MG TAB PO SCH (08:21)
[2016-11-14] MEDS: AZITHROMYCIN 250 MG TAB PO SCH (08:22)
[2016-11-14] MEDS: ENOXAPARIN 40 MG/0.4 ML SYR SC SCH ×2 (08:22→20:38)
[2016-11-14] MEDS: methylPREDNISolone SOD SUCC 125 MG/2 ML VIAL IVP SCH (08:23)
[2016-11-14 08:26] LABS: MAGNESIUM 2.5 mg/dL (1.6-2.3); POTASSIUM 4.5 mEq/L (3.5-5.2)
[2016-11-14 10:30] LABS: % IMMATURE GRANULYOCYTES 0.5 % (0.0-1.1); ABSOLUTE IMMATURE GRANULOCYTES 0.06 10^3/uL (0.00-0.10); ADD DIFF? NO; ADD MORPH? YES; ADD SCAN? NO; ATYPICAL LYMPHOCYTE FLAG 0 (0-99); FRAGMENT RBC FLAG 20 (0-99); HEMOGLOBIN 18.2 g/dL (12.6-16.3); LEFT SHIFT FLG 0 (0-99); LIPEMIA HEMOLYSIS FLAG 70 (0-99); MEAN CELL HEMOGLOBIN 24.7 pg (27.9-34.1); MEAN CELL HEMOGLOBIN CONCENTR. 29.4 g/dL (32.4-36.7); MEAN PLATELET VOLUME 10.2 fL (8.7-11.7); PLATELET CLUMPS FLAG 0 (0-99); PLATELET COUNT 235 10^3/uL (150-400); RED BLOOD CELL COUNT 7.38 10^6/uL (4.18-5.33)
[2016-11-14 10:49] LABS: RED CELL DISTRIBUTION WIDTH 20.2 % (11.5-15.2)
[2016-11-14 11:03] LABS: ANION GAP 10 mEq/L (8-16); CARBON DIOXIDE 39 mEq/l (22-31); CHLORIDE 94 mEq/L (97-110); CREATININE 0.5 mg/dL (0.6-1.0); GLOMERULAR FILTRATION RATE > 60; GLUCOSE 170 mg/dL (70-100); POTASSIUM 4.6 mEq/L (3.5-5.2); SODIUM 143 mEq/L (134-144)
--- NOTE | 2016-11-14 12:17 | PDINTPN ---
Receiving Dock Checker Progress Note Assessment/Plan: Assessment/plan: 56 F admitted 11/10/16 with SOB, found to have acute on chronic respiratory failure with cor pulmonale, severe hypoxia (66% RA on admission) and anasarca. She has a significant smoking history and now presumed COPD as well as OG/OHS with severe erythrocytosis. New to me 11/13/16. * Acute on chronic respiratory failure with hypoxia and hypercapnia- This likely the result of COPD/OG overlap syndrome. She did not use bipap last night as prescribed. I again spoke with her and her daughter at length today regarding the importqnce of this issue, which may be driving most if not all pf her problems. She was willing to try bipap if she had the opportunity to first try it during the day. She reluctantly agreed to starting Wellbutrin, but refused qhs seroquel. Her FiO2 is down to 60% and will likely come off vapotherm with improved compliance. * COPD- stable at the moment without obvious wheezing on solumedrol, duoneb, proventil and mucomyst. 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 Continue to stress IS, acappella, OOB as tolerated, etc. * OG- she clearly needs an outpatient sleep study, but reasonable to continue with QHS Bipap. Patient willing to keep trying. This, plus COPD and chronic hypoxemia, are likely major players in her cor pulmonale. She will need a bipap or Trilogy device prior to dc and we have asked case management to assist in making those arrangements. * OHS- Started Provera 20 TID on 11/13 as respiratory stimulant. Discussed small clot risk. Should get better with nightly Bipap. * Cor pulmonale/PH- as a result of untreated severe hypoxemia, COPD, OG/OHS with contributions from grade I diastolic dysfunction. Not PAH so no PAH- specific therapy (eg ERAs, PDE inhibitors, etc). Agree with current diuretics but don't feel increased dose needed to avoid ELEANOR, hypotension, etc. * Venous stasis changes in bilateral LE- I don't think this is cellulitis. * Erythrocytosis- no doubt 2/2 chronic hypoxemia and at risk for stasis complications such as CVA, [place]. Will re-phlebotomize 250 mL today with target hct <60. * 11/14/16 12:13 Objective: Vital Signs Temp Pulse Resp BP Pulse Ox 36.7 C 89 20 144/70 H 90 L 11/14/16 11:58 11/14/16 11:58 11/14/16 11:58 11/14/16 11:58 11/14/16 11:58 Laboratory Results 11/14/16 10:25 11/14/16 08:00 11/13/16 11/14/16 11/15/16 05:59 05:59 05:59 Intake Total 240 1100 800 Output Total 4072 6245 1600 Balance -6195 -2150 -800 Physical Exam - Physical Exam General Appearance: alert, no apparent distress, anxiety EENT: PERRL/EOMI Neck: supple Respiratory: lungs clear, normal breath sounds, No respiratory distress, No rales, No rhonchi Cardiac/Chest: regular rate, rhythm, edema Abdomen: non-tender, soft, No distended Skin: warm/dry, other (bilateral LE venous stasis changes) Lymphatic: no adenopathy Extremities: pedal edema, swelling Neuro/Psych: alert, normal mood/affect, oriented x 3 ICD10 Worksheet Patient Problems: Problems Problem Status Onset Acute exacerbation of congestive heart failure Acute Fluid overload Acute Hypoxia Acute Polycythemia Acute
[2016-11-14] MEDS: HYDROCODONE/APAP 5/325 TAB PO PRN ×2 (13:33→20:39)
[2016-11-14 14:02] LABS: HYPOCHROMIA 1+; LARGE PLATELETS PRESENT; MACROCYTES 1+; MICROCYTES 1+; PLATELET ESTIMATE ADEQUATE (ADEQ)
--- NOTE | 2016-11-14 17:58 | HOSPPROG ---
Hospitalist Progress Note Assessment/Plan: 56 yo F with longstanding tobacco use hx as well as likely undiagnosed joshua presenting with acute on chronic respiratory failure and cor pulmonale # acute on chronic hypoxic/hypercarbic respiratory failure: presenting initially with o2 in the 60s and only mildly symptomatic suggesting that this is an acute on chronic picture. 2/2 underlying untreated copd, joshua and ohs. Is currently having o2 sats between 89-92% on 60% hi flow o2. Intermittent bipap # copd with acute exacerbation: continue scheduled nebs, prednisone. # cor pulmonale: in setting of chronic hypoxia as above, on echo only mild pulm htn but clinically with significant lower extremity edema related to underlying chronic hypoxia and joshua/ohs. Continue lasix for gentle diuresis # venous stasis: with hyperpigmentation of ble c/w chronic venous stasis, no significant complications # erythrocytosis: significant and related to chronic hypoxia, will phlebotomize again today # dispo: IP status, will continue ICU for now until o2 saturations improve Patient newly in my care. Records since admission reviewed and summarized as above. Care plan reviewed with family present at bedside. Subjective: no significant overnight events, patient feeling better than on admission but not back to baseline, swelling has improved Objective: Vital Signs Temp Pulse Resp BP Pulse Ox 36.6 C 80 18 113/63 92 11/14/16 16:00 11/14/16 17:32 11/14/16 17:32 11/14/16 16:00 11/14/16 17:32 Laboratory Results 11/14/16 10:25 11/14/16 08:00 11/13/16 11/14/16 11/15/16 05:59 05:59 05:59 Intake Total 240 1100 800 Output Total 4075 3250 1600 Balance -3835 -2150 -800 awake alert nad anicteric op clear rrr no mrg dec bs scattered wheeze soft nt nd pitting edema ble warm dry hyperpigmented ble oriented approrpiate - Time Spent With Patient Time Spent with Patient: greater than 35 minutes Time Spent with Patient: Greater than 35 minutes spent on this patients care, greater than 50% of time spent counseling, educating, and coordinating care regarding the above mentioned plan. ICD10 Worksheet Patient Problems: Problems Problem Status Onset Acute exacerbation of congestive heart failure Acute Hypoxia Acute Fluid overload Acute Polycythemia Acute
[2016-11-15] MEDS: ACETYLCYSTEINE 20% IH/PO 30 ML VIAL IH SCH ×4 (00:58→17:37)
[2016-11-15 04:05] LABS: IONIZED CALCIUM 1.25 MMOL/L (1.12-1.30)
[2016-11-15 04:08] LABS: % IMMATURE GRANULYOCYTES 0.4 % (0.0-1.1); ABSOLUTE IMMATURE GRANULOCYTES 0.05 10^3/uL (0.00-0.10); ADD DIFF? NO; ADD MORPH? YES; ADD SCAN? NO; ATYPICAL LYMPHOCYTE FLAG 0 (0-99); FRAGMENT RBC FLAG 20 (0-99); HEMOGLOBIN 17.9 g/dL (12.6-16.3); LEFT SHIFT FLG 0 (0-99); LIPEMIA HEMOLYSIS FLAG 70 (0-99); MEAN CELL HEMOGLOBIN 25.1 pg (27.9-34.1); MEAN CELL HEMOGLOBIN CONCENTR. 29.7 g/dL (32.4-36.7); MEAN CELL VOLUME 84.4 fL (81.5-99.8); MEAN PLATELET VOLUME 10.7 fL (8.7-11.7); PLATELET CLUMPS FLAG 0 (0-99); PLATELET COUNT 231 10^3/uL (150-400); RED BLOOD CELL COUNT 7.13 10^6/uL (4.18-5.33)
[2016-11-15 04:14] LABS: CALCIUM 9.6 mg/dL (8.5-10.4); CHLORIDE 92 mEq/L (97-110); CREATININE 0.6 mg/dL (0.6-1.0); GLOMERULAR FILTRATION RATE > 60; GLUCOSE 90 mg/dL (70-100); MAGNESIUM 2.3 mg/dL (1.6-2.3); POTASSIUM 4.3 mEq/L (3.5-5.2); RED CELL DISTRIBUTION WIDTH 20.3 % (11.5-15.2); SODIUM 140 mEq/L (134-144)
[2016-11-15] MEDS: HYDROCODONE/APAP 5/325 TAB PO PRN ×2 (04:15→21:02)
[2016-11-15 04:21] LABS: ANION GAP 3 mEq/L (8-16); HEMATOCRIT 60.2 % (38.0-47.0)
[2016-11-15 04:22] LABS: CARBON DIOXIDE 45 mEq/l (22-31)
[2016-11-15] MEDS: IPRATROPIUM/ALBUTEROL 3 ML DEYVIAL IH SCH ×4 (04:46→21:05)
[2016-11-15 05:21] LABS: MACROCYTES 1+; PLATELET ESTIMATE ADEQUATE (ADEQ); TARGET CELLS 1+
[2016-11-15] MEDS ORDERED: buPROPion SR 100 MG TAB PO SCH (08:00)
[2016-11-15] MEDS: medroxyPROGESTERone 10 MG TAB PO SCH (08:24)
[2016-11-15] MEDS: predniSONE 20 MG TAB PO SCH (08:24)
[2016-11-15] MEDS: buPROPion SR 150 MG TAB PO SCH ×2 (08:25→21:02)
[2016-11-15] MEDS: AZITHROMYCIN 250 MG TAB PO SCH (08:25)
[2016-11-15] MEDS: FUROSEMIDE 40 MG TAB PO SCH (08:25)
[2016-11-15] MEDS: guaiFENesin 600 MG TAB.ER PO SCH ×2 (08:25→21:02)
[2016-11-15] MEDS: NICOTINE 21 MG/24 HR PATCH TD SCH (08:26)
[2016-11-15] MEDS: ENOXAPARIN 40 MG/0.4 ML SYR SC SCH ×2 (08:26→21:02)
[2016-11-15] MEDS: ACETAMINOPHEN 325 MG TAB PO SCH (08:26)
[2016-11-15] MEDS: SENNOSIDES/DOCUSATE SODIUM TAB PO SCH ×2 (08:31→20:39)
--- NOTE | 2016-11-15 15:05 | PDINTPN ---
Delivery Director Progress Note Assessment/Plan: Assessment/plan: 56 F admitted 11/10/16 with SOB, found to have acute on chronic respiratory failure with cor pulmonale, severe hypoxia (66% RA on admission) and anasarca. She has a significant smoking history and now presumed COPD as well as OG/OHS with severe erythrocytosis. New to me 11/13/16. * Acute on chronic respiratory failure with hypoxia and hypercapnia- This likely the result of COPD/OG overlap syndrome. She used bipap last pm for 6 hours, though did not sleep well. Encouraged to keep up compliance as this will likely imporove O2 needs. She will need bipap or a trilogy at dc * COPD- stable at the moment without obvious wheezing on prednisone duoneb, proventil and mucomyst. Continue to stress IS, acappella, OOB as tolerated, etc. * OG- she clearly needs an outpatient sleep study, but reasonable to continue with QHS Bipap. Patient willing to keep trying. This, plus COPD and chronic hypoxemia, are likely major players in her cor pulmonale. * OHS- Started Provera 20 TID on 11/13 as respiratory stimulant. Discussed small clot risk. Should get better with nightly Bipap. * Cor pulmonale/PH- as a result of untreated severe hypoxemia, COPD, OG/OHS with contributions from grade I diastolic dysfunction. Not PAH so no PAH- specific therapy (eg ERAs, PDE inhibitors, etc). Decreased lasix today as her serum HCO3 is rising. I dont think she needs a new abg at the moment, but we will want one prior to dc to establish a baseline * Erythrocytosis- no doubt 2/2 chronic hypoxemia and at risk for stasis complications such as CVA, [place]. Hct= 60 today so no further planned phlebotomy * Objective: Vital Signs Temp Pulse Resp BP Pulse Ox 36.6 C 86 20 130/80 H 91 L 11/15/16 07:24 11/15/16 11:10 11/15/16 11:10 11/15/16 07:24 11/15/16 11:10 Laboratory Results 11/15/16 04:00 11/15/16 04:00 11/14/16 11/15/16 11/16/16 05:59 05:59 05:59 Intake Total 1100 2660 Output Total 3250 4400 200 Balance -2150 -1740 -200 Physical Exam - Physical Exam General Appearance: WD/WN, alert, obese EENT: PERRL/EOMI Neck: supple Respiratory: lungs clear, normal breath sounds, No respiratory distress, No wheezing Cardiac/Chest: regular rate, rhythm, edema Abdomen: non-tender, soft, No distended Skin: warm/dry, other (bilateral venous stasis changes in LEs), No cyanosis Extremities: normal range of motion, pedal edema Neuro/Psych: alert, normal mood/affect, oriented x 3 ICD10 Worksheet Patient Problems: Problems Problem Status Onset Acute exacerbation of congestive heart failure Acute Fluid overload Acute Hypoxia Acute Polycythemia Acute
--- NOTE | 2016-11-15 16:28 | HOSPPROG ---
Hospitalist Progress Note Assessment/Plan: 56 yo F with longstanding tobacco use hx as well as likely undiagnosed joshua presenting with acute on chronic respiratory failure and cor pulmonale # acute on chronic hypoxic/hypercarbic respiratory failure: presenting initially with o2 in the 60s and only mildly symptomatic suggesting that this is an acute on chronic picture. 2/2 underlying untreated copd, joshua and ohs. Was on bipap for many hours over the last 2 days, now maintaing sats on 6L of O2. Will need to dc home on o2 which is challenging given that she has no insurance. # copd with acute exacerbation: continue scheduled nebs, prednisone. # cor pulmonale: in setting of chronic hypoxia as above, on echo only mild pulm htn but clinically with significant lower extremity edema related to underlying chronic hypoxia and joshua/ohs. Continue lasix for gentle diuresis # JOSHUA: will need to go home on cpap or bipap however again given no insurance unclear if this is possible # venous stasis: with hyperpigmentation of ble c/w chronic venous stasis, no significant complications # erythrocytosis: significant and related to chronic hypoxia, will phlebotomize again today # dispo: IP status, will continue ICU for now until o2 saturations improve care plan reviewed with family present at bedside Subjective: no signficant overnight events, patient feeling a bit better, o2 needs coming down Objective: Vital Signs Temp Pulse Resp BP Pulse Ox 36.8 C 84 18 122/76 H 94 11/15/16 15:58 11/15/16 15:58 11/15/16 15:58 11/15/16 15:58 11/15/16 15:58 Laboratory Results 11/15/16 04:00 11/15/16 04:00 11/14/16 11/15/16 11/16/16 05:59 05:59 05:59 Intake Total 1100 2660 Output Total 3250 4400 1500 Balance -2150 -1740 -1500 awake alert nad anicteric op clear rrr no mrg dec bs scattered wheeze soft nt nd pitting edema ble warm dry hyperpigmented ble oriented approrpiate - Time Spent With Patient Time Spent with Patient: greater than 35 minutes Time Spent with Patient: Greater than 35 minutes spent on this patients care, greater than 50% of time spent counseling, educating, and coordinating care regarding the above mentioned plan. ICD10 Worksheet Patient Problems: Problems Problem Status Onset Acute exacerbation of congestive heart failure Acute Fluid overload Acute Hypoxia Acute Polycythemia Acute
[2016-11-16] MEDS: ACETYLCYSTEINE 20% IH/PO 30 ML VIAL IH SCH ×5 (00:49→22:18)
[2016-11-16] MEDS: HYDROCODONE/APAP 5/325 TAB PO PRN ×3 (03:22→19:31)
[2016-11-16 03:50] LABS: % IMMATURE GRANULYOCYTES 0.5 % (0.0-1.1); ABSOLUTE IMMATURE GRANULOCYTES 0.05 10^3/uL (0.00-0.10); ADD DIFF? NO; ADD MORPH? NO; ADD SCAN? NO; ATYPICAL LYMPHOCYTE FLAG 0 (0-99); FRAGMENT RBC FLAG 20 (0-99); HEMATOCRIT 58.8 % (38.0-47.0); HEMOGLOBIN 17.5 g/dL (12.6-16.3); LEFT SHIFT FLG 0 (0-99); LIPEMIA HEMOLYSIS FLAG 70 (0-99); MEAN CELL HEMOGLOBIN 25.2 pg (27.9-34.1); MEAN CELL HEMOGLOBIN CONCENTR. 29.8 g/dL (32.4-36.7); MEAN CELL VOLUME 84.7 fL (81.5-99.8); MEAN PLATELET VOLUME 9.9 fL (8.7-11.7); PLATELET CLUMPS FLAG 0 (0-99); PLATELET COUNT 190 10^3/uL (150-400); RED BLOOD CELL COUNT 6.94 10^6/uL (4.18-5.33); RED CELL DISTRIBUTION WIDTH 19.9 % (11.5-15.2)
[2016-11-16 04:00] LABS: CALCIUM 9.5 mg/dL (8.5-10.4); CHLORIDE 95 mEq/L (97-110); CREATININE 0.6 mg/dL (0.6-1.0); GLOMERULAR FILTRATION RATE > 60; GLUCOSE 93 mg/dL (70-100); MAGNESIUM 2.3 mg/dL (1.6-2.3); POTASSIUM 4.3 mEq/L (3.5-5.2); SODIUM 142 mEq/L (134-144)
[2016-11-16 04:14] LABS: ANION GAP 6 mEq/L (8-16)
[2016-11-16 04:15] LABS: CARBON DIOXIDE 41 mEq/l (22-31)
[2016-11-16] MEDS: IPRATROPIUM/ALBUTEROL 3 ML DEYVIAL IH SCH ×4 (05:38→21:47)
[2016-11-16] MEDS: ACETAMINOPHEN 325 MG TAB PO SCH (08:39)
[2016-11-16] MEDS: AZITHROMYCIN 250 MG TAB PO SCH (08:39)
[2016-11-16] MEDS: guaiFENesin 600 MG TAB.ER PO SCH ×2 (08:40→19:32)
[2016-11-16] MEDS: buPROPion SR 150 MG TAB PO SCH ×2 (08:41→19:32)
[2016-11-16] MEDS: predniSONE 20 MG TAB PO SCH (08:41)
[2016-11-16] MEDS: FUROSEMIDE 40 MG TAB PO SCH (08:41)
[2016-11-16] MEDS: medroxyPROGESTERone 10 MG TAB PO SCH (08:42)
[2016-11-16] MEDS: SENNOSIDES/DOCUSATE SODIUM TAB PO SCH ×2 (08:43→19:45)
[2016-11-16] MEDS: NICOTINE 21 MG/24 HR PATCH TD SCH (08:43)
[2016-11-16] MEDS: ENOXAPARIN 40 MG/0.4 ML SYR SC SCH ×2 (08:43→19:32)
--- NOTE | 2016-11-16 11:51 | HOSPPROG ---
Hospitalist Progress Note Assessment/Plan: 56 yo F with longstanding tobacco use hx as well as likely undiagnosed joshua presenting with acute on chronic respiratory failure and cor pulmonale # acute on chronic hypoxic/hypercarbic respiratory failure: presenting initially with o2 in the 60s and only mildly symptomatic suggesting that this is an acute on chronic picture. 2/2 underlying untreated copd, joshua and ohs. Was on bipap for many hours over the last 2 days, now maintaing sats on 5-6L of O2. Will need to dc home on o2 which is challenging given that she has no insurance. # copd with acute exacerbation: continue scheduled nebs, prednisone. # cor pulmonale: in setting of chronic hypoxia as above, on echo only mild pulm htn but clinically with significant lower extremity edema related to underlying chronic hypoxia and joshua/ohs. Holding lasix given increased bicarb # JOSHUA: will need to go home on cpap or bipap however again given no insurance unclear if this is possible, started on medroxyprogesterone for resp stimulus # venous stasis: with hyperpigmentation of ble c/w chronic venous stasis, no significant complications # erythrocytosis: significant and related to chronic hypoxia, continue to monitor, daily asa # dispo: IP status, will continue ICU for now until o2 saturations improve care plan reviewed with family present at bedside. Many concerns regarding how they will pay for hospitalization and meds/oxygen/bipap etc after discharge. They have met with financial counselor, recommend they also speak with patient rep. Subjective: no significant overnight events, patient is currently feeling better , worried about leaving ICU, worried about f/u care plan, not sleeping great with bipap on due to claustrophobia Objective: Vital Signs Temp Pulse Resp BP Pulse Ox 36.7 C 86 24 H 114/60 90 L 11/16/16 11:05 11/16/16 11:05 11/16/16 11:05 11/16/16 11:05 11/16/16 11:05 Laboratory Results 11/16/16 03:30 11/16/16 03:30 11/15/16 11/16/16 11/17/16 05:59 05:59 05:59 Intake Total 2660 1680 Output Total 4400 2550 Balance -1740 -870 awake alert nad anicteric op clear rrr no mrg dec bs scattered wheeze soft nt nd pitting edema ble warm dry hyperpigmented ble oriented approrpiate ICD10 Worksheet Patient Problems: Problems Problem Status Onset Acute exacerbation of congestive heart failure Acute Fluid overload Acute Hypoxia Acute Polycythemia Acute
--- NOTE | 2016-11-16 14:59 | PDINTPN ---
Front End Application Developer Progress Note Assessment/Plan: Assessment/plan: 56 F admitted 11/10/16 with SOB, found to have acute on chronic respiratory failure with cor pulmonale, severe hypoxia (66% RA on admission) and anasarca. She has a significant smoking history and now presumed COPD as well as OG/OHS with severe erythrocytosis. New to me 11/13/16. * Acute on chronic respiratory failure with hypoxia and hypercapnia- This likely the result of COPD/OG overlap syndrome. Continued compliance with bipap and rapidly decreasing O2 requirement. She will need bipap or a trilogy at dc * COPD- stable at the moment without obvious wheezing on prednisone duoneb, proventil and mucomyst. Continue to stress IS, acappella, OOB as tolerated, etc. Taper prednisone * OG- she clearly needs an outpatient sleep study, but reasonable to continue with QHS Bipap. Patient willing to keep trying. This, plus COPD and chronic hypoxemia, are likely major players in her cor pulmonale. Will try to arrange sleep study VÍCTOR, but resources may be a barrier * OHS- Started Provera 20 TID on 11/13 as respiratory stimulant. Discussed small clot risk. Should get better with nightly Bipap. * Cor pulmonale/PH- as a result of untreated severe hypoxemia, COPD, OG/OHS with contributions from grade I diastolic dysfunction. Not PAH so no PAH- specific therapy (eg ERAs, PDE inhibitors, etc). Decreased lasix today as her serum HCO3 is rising. I dont think she needs a new abg at the moment, but we will want one prior to dc to establish a baseline * Erythrocytosis- no doubt 2/2 chronic hypoxemia and at risk for stasis complications such as CVA, [place]. No further planned phlebotomy * Objective: Vital Signs Temp Pulse Resp BP Pulse Ox 36.7 C 82 25 H 114/60 90 L 11/16/16 11:05 11/16/16 12:59 11/16/16 12:59 11/16/16 11:05 11/16/16 12:59 Laboratory Results 11/16/16 03:30 11/16/16 03:30 11/15/16 11/16/16 11/17/16 05:59 05:59 05:59 Intake Total 2660 1680 720 Output Total 4400 2550 900 Balance -1740 -870 -180 Physical Exam - Physical Exam General Appearance: alert, no apparent distress, obese EENT: PERRL/EOMI Neck: supple Respiratory: lungs clear, normal breath sounds, No respiratory distress Cardiac/Chest: regular rate, rhythm, edema Abdomen: non-tender, soft, No distended Skin: warm/dry, No cyanosis Extremities: pedal edema Neuro/Psych: alert, normal mood/affect, oriented x 3 ICD10 Worksheet Patient Problems: Problems Problem Status Onset Acute exacerbation of congestive heart failure Acute Fluid overload Acute Hypoxia Acute Polycythemia Acute
[2016-11-17] MEDS: HYDROCODONE/APAP 5/325 TAB PO PRN ×3 (04:22→20:50)
[2016-11-17 04:37] LABS: IONIZED CALCIUM 1.17 MMOL/L (1.12-1.30)
[2016-11-17 04:41] LABS: % IMMATURE GRANULYOCYTES 0.4 % (0.0-1.1); ABSOLUTE IMMATURE GRANULOCYTES 0.04 10^3/uL (0.00-0.10); ADD DIFF? NO; ADD MORPH? YES; ADD SCAN? NO; ATYPICAL LYMPHOCYTE FLAG 0 (0-99); FRAGMENT RBC FLAG 20 (0-99); HEMATOCRIT 57.5 % (38.0-47.0); HEMOGLOBIN 16.9 g/dL (12.6-16.3); LEFT SHIFT FLG 0 (0-99); LIPEMIA HEMOLYSIS FLAG 70 (0-99); MEAN CELL HEMOGLOBIN 24.9 pg (27.9-34.1); MEAN CELL HEMOGLOBIN CONCENTR. 29.4 g/dL (32.4-36.7); MEAN CELL VOLUME 84.8 fL (81.5-99.8); MEAN PLATELET VOLUME 10.3 fL (8.7-11.7); PLATELET CLUMPS FLAG 0 (0-99); PLATELET COUNT 202 10^3/uL (150-400); RED BLOOD CELL COUNT 6.78 10^6/uL (4.18-5.33); RED CELL DISTRIBUTION WIDTH 20.1 % (11.5-15.2)
[2016-11-17 04:50] LABS: ANION GAP 4 mEq/L (8-16); CALCIUM 9.5 mg/dL (8.5-10.4); CARBON DIOXIDE 39 mEq/l (22-31); CHLORIDE 97 mEq/L (97-110); CREATININE 0.6 mg/dL (0.6-1.0); GLOMERULAR FILTRATION RATE > 60; GLUCOSE 82 mg/dL (70-100); MAGNESIUM 2.3 mg/dL (1.6-2.3); POTASSIUM 4.4 mEq/L (3.5-5.2); SODIUM 140 mEq/L (134-144)
[2016-11-17 05:21] LABS: HYPOCHROMIA 1+; MACROCYTES 1+; MICROCYTES 1+
[2016-11-17 05:22] LABS: PLATELET ESTIMATE ADEQUATE (ADEQ); STOMATOCYTES 1+
[2016-11-17] MEDS: IPRATROPIUM/ALBUTEROL 3 ML DEYVIAL IH SCH ×4 (05:49→21:35)
[2016-11-17] MEDS: ACETYLCYSTEINE 20% IH/PO 30 ML VIAL IH SCH ×3 (06:09→17:59)
[2016-11-17] MEDS: guaiFENesin 600 MG TAB.ER PO SCH ×2 (08:31→20:42)
[2016-11-17] MEDS: AZITHROMYCIN 250 MG TAB PO SCH (08:31)
[2016-11-17] MEDS: NICOTINE 21 MG/24 HR PATCH TD SCH (08:31)
[2016-11-17] MEDS: medroxyPROGESTERone 10 MG TAB PO SCH (08:31)
[2016-11-17] MEDS: ASPIRIN 81 MG CHEWABLE TAB PO SCH (08:31)
[2016-11-17] MEDS: predniSONE 20 MG TAB PO SCH (08:32)
[2016-11-17] MEDS: FUROSEMIDE 40 MG TAB PO SCH (08:32)
[2016-11-17] MEDS: buPROPion SR 150 MG TAB PO SCH ×2 (08:32→20:41)
[2016-11-17] MEDS: ACETAMINOPHEN 325 MG TAB PO SCH (08:32)
[2016-11-17] MEDS: ENOXAPARIN 40 MG/0.4 ML SYR SC SCH ×2 (08:33→20:42)
[2016-11-17] MEDS: SENNOSIDES/DOCUSATE SODIUM TAB PO SCH ×2 (08:51→20:41)
--- NOTE | 2016-11-17 11:31 | HOSPPROG ---
Hospitalist Progress Note Assessment/Plan: 56 yo F with longstanding tobacco use hx presenting with acute hypoxic respiratory failure with o2 sats as low as 66% on RA in ER # acute on chronic hypoxic/hypercarbic respiratory failure: presenting initially with o2 in the 60s and only mildly symptomatic suggesting that this is an acute on chronic picture. 2/2 underlying untreated copd, joshua and ohs. Was on bipap for many hours over the last 2 days, now maintaing sats on 5-6L of O2. Will need to dc home on o2 which is challenging given that she has no insurance. #NSVT this morning -I am reluctant to start beta blockers in light of her pulm disease -Cardiology consult called # copd with acute exacerbation: continue scheduled nebs, continue prednisone taper per Pulm. Will DC azithromycin # cor pulmonale: in setting of chronic hypoxia as above, on echo only mild pulm htn but clinically with significant lower extremity edema related to underlying chronic hypoxia and joshua/ohs. -Continue Lasix 40mg daily as ordered # JOSHUA: will need to go home on cpap or bipap however again given no insurance unclear if this is possible, started on medroxyprogesterone for resp stimulus # venous stasis: with hyperpigmentation of ble c/w chronic venous stasis, no significant complications # erythrocytosis: significant and related to chronic hypoxia, continue to monitor, daily asa #tobacco abuse -continue nicotine replacement and wellbutrin # dispo: Will transfer back to PCU with pulse ox and tele care plan reviewed with family present at bedside. Many concerns regarding how they will pay for hospitalization and meds/oxygen/bipap etc after discharge. They have met with financial counselor, recommend they also speak with patient rep. Subjective: improving work of breathing. tolering bipap, but still not sleeping well. improving leg swelling. reports palpatations this morning Objective: Vital Signs Temp Pulse Resp BP Pulse Ox 37.2 C 84 20 120/59 L 91 L 11/17/16 11:05 11/17/16 11:05 11/17/16 11:05 11/17/16 11:05 11/17/16 11:05 Laboratory Results 11/17/16 04:25 11/17/16 04:25 11/16/16 11/17/16 11/18/16 05:59 05:59 05:59 Intake Total 1680 2640 Output Total 2550 4200 Balance -870 -1560 - Physical Exam Constitutional: no apparent distress, appears nourished, not in pain, obese Cardiovascular: regular rate and rhythym, no murmur, rub, or gallop, edema Respiratory: no respiratory distress, no rales or rhonchi, clear to auscultation , reduced air movement Gastrointestinal: normoactive bowel sounds, soft, non-tender abdomen, no palpable masses, No guarding, No rebound Skin: warm, erythema (bilat legs (improving)) Neurologic: AAOx3, sensation intact bilaterally ICD10 Worksheet Patient Problems: Problems Problem Status Onset Acute exacerbation of congestive heart failure Acute Hypoxia Acute Fluid overload Acute Polycythemia Acute
--- NOTE | 2016-11-17 14:28 | PDCARCONS ---
Cardiology Consult Reason for Consult: Telemetry with concerning arrhythmia Chief Complaint: shortness of breath Requesting Physician: hospitalist History of Present Illness: Patient is a 56 y/o female with long standing history of tobacco abuse (two packs per day for over forty years), COPD, OG (reportedly severe), and "new" diagnosis of CAD (by CT calcium), but no formal diagnosis of HTN, HLP, or DM, who presented to [facility] about one week ago with progressive and significant shortness of breath. Pulm Crit Care with ongoing, aggressive pulmonary management. Concerns about the likelihood of severe OG (CPAP was started with this admission). No juan carlos complaints of chest pains or pressure. PND and orthopnea were noted. Lower extremity edema progressed to the abdomen within the last several weeks (slow enough that the patient thought she was simply "getting fat"). Improvements in symptoms have been noted and weight loss has been appreciated (9 kilograms). Early this morning, on telemetry, the patient appeared to have a run of ventricular tachycardia (according to the computer interpretation). There was some degree of irregularity noted, as well as a lack of profound difference in heart rate with baseline rhythm and the wide complex arrhythmia. Given the degree of OG noted, there is concern that this arrhythmia may represent atrial fibrillation with aberrant conduction. Family was present with the patient today, and voiced their concerns about the patient' s family history of "heart attacks". Patient has not been seen by a physician for over thirty years. Both the patient and her are smokers, and both, according to the patient's daughter, have stopped smoking. The remainder of the twelve point review of systems was unremarkable less that which has been documented above. History Information - Allergies/Home Medication List Allergies/Adverse Reactions: codeine Allergy (Verified 11/10/16 08:39) Vomiting diphenhydramine [From Benadryl] Allergy (Verified 11/10/16 08:39) Hives ibuprofen Allergy (Verified 11/10/16 08:39) Other-Enter Comments naproxen Allergy (Verified 11/10/16 08:39) Hives Home Medications: Acetaminophen [Tylenol 325mg (*)] 325 mg PO DAILY 11/10/16 [Last Taken 11/09/16] Aspirin [Aspirin 325 mg (*)] 325 mg PO DAILY PRN 11/10/16 [Last Taken 11/09/16] Herbals/Supplements -Info Only 1 ea PO DAILY 11/10/16 [Last Taken Unknown] Hydrocodone/Acetaminophen [[place] 5/325 (*)] 0.5 tab PO DAILY PRN 11/10/16 [Last Taken Unknown] guaiFENesin/DEXTROMETHORPHAN [Mucinex Dm ER 1,200-60 mg Tab] 1 each PO HS PRN [Last Taken 11/08/16] I have personally reviewed and updated: family history, medical history, social history, surgical history - Past Medical History coronary artery disease, COPD Additional medical history: diastolic CHF - Surgical History Additional surgical history: knee arthoscopy - Family History Positive for: CAD, mother with history of CAD younger than 65 - Social History Smoking Status: Current every day smoker (2 packs per day, smoking since 10 years old, 80-100 pack years) Tobacco Use: Cigarettes Alcohol Use: Rarely Drug Use: Marijuana Cardiac History - Cardiac History Past Cardiac History: CAD (based on recent CT scan with coronary calcifications noted) Cardiac Risk Factors: current cigarette smoker, family history of premature CAD Timing/Duration: Weeks Severity: moderate Severity Scale: 5 Location: substernal Activities at Onset: activity Modifying Factors: improves with: oxygen, rest Associated Symptoms: malaise, shortness of breath LARRY Risk Evaluation age greater or equal to 65: no greater or equal to 3 CAD risk factors: no known CAD(stenosis greater or eqaul to 50%): no ASA use in past 7 days: no severe angina(greater or equal to 2 episodes in 24hrs): no EKG ST changes greater or equal to 0.5mm: no positive cardiac marker: no Total Score: 0 LARRY Score: 4.7% risk Physical Exam Temp Pulse Resp BP Pulse Ox 37.2 C 81 20 114/66 97 11/17/16 11:05 11/17/16 13:58 11/17/16 13:58 11/17/16 13:58 11/17/16 13:58 O2 (L/minute) 5 FIO2 (%) 60 Constitutional: appears nourished, obese Eyes: PERRL Ears, Nose, Mouth, Throat: moist mucous membranes, hearing normal Cardiovascular: regular rate and rhythym, No systolic murmur, No diastolic murmur, No JVD Peripheral Pulses: 2+: dorsalis-pedis (R), dorsalis-pedis (L) Respiratory: no respiratory distress, clear to auscultation, expiratory wheeze, No respiratory distress Gastrointestinal: normoactive bowel sounds Skin: warm, other (mild lower extremity edema (great improvement in comparison to that which was noted at the time of admission).) Musculoskeletal: full muscle strength, no muscle tenderness Neurologic: AAOx3, sensation intact bilaterally Psychiatric: interacting appropriately, not anxious, not encephalopathic Lab and Imaging 11/17/16 04:25 11/17/16 04:25 WBC 8.96 10^3/uL (3.80-9.50) 11/17/16 04:25 RBC 6.78 10^6/uL (4.18-5.33) H 11/17/16 04:25 Hgb 16.9 g/dL (12.6-16.3) H 11/17/16 04:25 Hct 57.5 % (38.0-47.0) H 11/17/16 04:25 MCV 84.8 fL (81.5-99.8) 11/17/16 04:25 MCH 24.9 pg (27.9-34.1) L 11/17/16 04:25 MCHC 29.4 g/dL (32.4-36.7) L 11/17/16 04:25 RDW 20.1 % (11.5-15.2) H 11/17/16 04:25 Plt Count 202 10^3/uL (150-400) 11/17/16 04:25 MPV 10.3 fL (8.7-11.7) 11/17/16 04:25 Neut % (Auto) 59.9 % (39.3-74.2) 11/17/16 04:25 Lymph % (Auto) 26.7 % (15.0-45.0) 11/17/16 04:25 Amador % (Auto) 10.4 % (4.5-13.0) 11/17/16 04:25 Eos % (Auto) 2.5 % (0.6-7.6) 11/17/16 04:25 Baso % (Auto) 0.1 % (0.3-1.7) L 11/17/16 04:25 Nucleat RBC Rel Count 0.0 % (0.0-0.2) 11/17/16 04:25 Absolute Neuts (auto) 5.37 10^3/uL (1.70-6.50) 11/17/16 04:25 Absolute Lymphs (auto) 2.39 10^3/uL (1.00-3.00) 11/17/16 04:25 Absolute Monos (auto) 0.93 10^3/uL (0.30-0.80) H 11/17/16 04:25 Absolute Eos (auto) 0.22 10^3/uL (0.03-0.40) 11/17/16 04:25 Absolute Basos (auto) 0.01 10^3/uL (0.02-0.10) L 11/17/16 04:25 Absolute Nucleated RBC 0.00 10^3/uL (0-0.01) 11/17/16 04:25 Immature Gran % 0.4 % (0.0-1.1) 11/17/16 04:25 Immature Gran # 0.04 10^3/uL (0.00-0.10) 11/17/16 04:25 Platelet Estimate ADEQUATE (ADEQ) 11/17/16 04:25 Large Platelets PRESENT H 11/14/16 10:25 Polychromasia 1+ H 11/13/16 04:10 Hypochromasia 1+ H 11/17/16 04:25 Microcytic Cells 1+ H 11/17/16 04:25 Target Cells 1+ H 11/15/16 04:00 Oval Macrocytes 1+ H 11/17/16 04:25 Stomatocytes 1+ H 11/17/16 04:25 D-Dimer 1.47 ug/mLFEU (0.00-0.50) H 11/10/16 10:32 Puncture Site RIGHT RADIAL 11/13/16 03:26 Patient Temperature 36.1 DEGREES 11/13/16 03:26 pCO2 76 mmHg (34-38) H* 11/13/16 03:26 pO2 66 mmHg (65-75) 11/13/16 03:26 Total CO2 43 mEq/L (23-27) H* 11/13/16 03:26 ABG pH 7.34 (7.35-7.45) L 11/13/16 03:26 ABG O2 Saturation Not Reported 11/13/16 03:26 ABG Base Excess Not Reported 11/13/16 03:26 Sodium 140 mEq/L (134-144) 11/17/16 04:25 Potassium 4.4 mEq/L (3.5-5.2) 11/17/16 04:25 Chloride 97 mEq/L (97-110) 11/17/16 04:25 Carbon Dioxide 39 mEq/l (22-31) H 11/17/16 04:25 Bicarbonate 40 mEq/L (22-26) H 11/13/16 03:26 Anion Gap 4 mEq/L (8-16) L 11/17/16 04:25 BUN 32 mg/dL (7-23) H 11/17/16 04:25 Creatinine 0.6 mg/dL (0.6-1.0) 11/17/16 04:25 Estimated GFR > 60 11/17/16 04:25 Glucose 82 mg/dL (70-100) 11/17/16 04:25 Calcium 9.5 mg/dL (8.5-10.4) 11/17/16 04:25 Ionized Calcium 1.17 MMOL/L (1.12-1.30) 11/17/16 04:25 Phosphorus 4.5 mg/dL (2.5-4.5) 11/17/16 04:25 Magnesium 2.3 mg/dL (1.6-2.3) 11/17/16 04:25 Total Bilirubin 1.2 mg/dL (0.1-1.4) 11/10/16 04:30 Conjugated Bilirubin 0.6 mg/dL (0.0-0.5) H 11/10/16 04:30 Unconjugated Bilirubin 0.6 mg/dL (0.0-1.1) 11/10/16 04:30 AST 32 IU/L (14-46) 11/10/16 04:30 ALT 37 IU/L (9-52) 11/10/16 04:30 Alkaline Phosphatase 104 IU/L (38-126) 11/10/16 04:30 Troponin I 0.018 ng/mL (0-0.034) 11/10/16 16:05 NT-Pro-B Natriuret Pep 1740 pg/mL (0-125) H 11/10/16 04:27 Total Protein 6.8 g/dL (6.3-8.2) 11/10/16 04:30 Albumin 3.8 g/dL (3.5-5.0) 11/10/16 04:30 Triglycerides 84 mg/dL (35-135) 11/12/16 04:09 Cholesterol 132 mg/dL (140-220) L 11/12/16 04:09 Cholesterol Risk Factr 1.2 (0.2-1.0) H 11/12/16 04:09 LDL Cholesterol, Calc 87 mg/dL (80-100) 11/12/16 04:09 LDL Risk Factor 1.0 (0.2-1.0) 11/12/16 04:09 VLDL Cholesterol 16 mg/dL (8-25) 11/12/16 04:09 Non-HDL Cholesterol 103 mg/dL (90-129) 11/12/16 04:09 HDL Cholesterol 29 mg/dL (40-85) L 11/12/16 04:09 LDL/HDL Ratio 3.00 RATIO (1.00-3.22) 11/12/16 04:09 Cholesterol/HDL Ratio 4.55 RATIO (1.00-4.44) H 11/12/16 04:09 TSH 6.730 uIU/mL (0.465-4.680) H 11/10/16 04:30 Visualized and Interpreted Chest x-ray results: Yes Chest X-ray Interpretation: normal heart size, other (congestion) Visualized and Interpreted imaging results: Yes Interpretation: No PE on the CT, but CAD and lymphadenopathy were noted Visualized and Interpreted EKG results: Yes EKG Interpretation: Positive for: normal sinsus rhythm EKG additional interpertation: sinus arrhythmia Telemetry: Sinus rhythm. There was a strip from this morning, on telemetry with a wide complex arrhythmia noted. No juan carlos change to heart rate was noted, and mild irregularitiese were appreciated. Computer interpretation of "VT", but would also consider pAF with aberrant conduction given the patient's CV risks and the likely severe OG. Echocardiogram: normal LVEF was noted with diastolic dysfunction. elevated RVSP to 45- 50 mm Hg. A/P Assessment: Patient is a 56 y/o female with history of CAD, COPD, OG, and diastolic heart failure (all these diagnoses are new), but no HTN, HLP, or DM, who presented to [facility] ER with complaints of shortness of breath and progressive weight gain and edema (initially to the feet/legs, the progressed to the abdomen). Diuresis has been successful - about 9 kg of weight lost - and overall she is feeling better. Ongoing shortness of breath, but improved. There was a wide complex arrhythmia noted on telemetry this morning (fair quality data) that was interpreted by the computer as VT. Query atrial fibrillation with aberrant conduction versus ventricular arrhythmia. No symptoms were reportedly noted with the event. CT scan, at the time of admission, without pulmonary emboli, but with notable "coronary calcifications" noted. Plan: From a cardiovascular perspective... (1) Would maintain therapy on ASA at 81 mg per day (2) Formal testing for fitting of CPAP given the degree of OG noted - strong concerns about pAF with history of OG (3) Would add low dose metoprolol tartrate (12.5 mg PO QHS) for the next month (4) Would arrange for the patient to have a nuclear stress test (CAD by CT was noted) (5) Outpatient CardioNet (30 day event monitor) should also be arranged (6) Outpatient follow up with cardiology after testing has been completed (7) Outpatient follow up with pulmonary given the COPD noted (8) Strong recommendations for smoking cessation
--- NOTE | 2016-11-17 16:11 | PDINTPN ---
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 She has a significant smoking history and COPD as well as OG/OHS with severe erythrocytosis. New to me 11/13/16. * Acute on chronic respiratory failure with hypoxia and hypercapnia- This likely the result of COPD/OG overlap syndrome. She has been compliant with bipap which I believe she needs prior to dc. She clearly has severe hypoventilation as evidenced by her pCO2 of 76 * COPD- stable at the moment without obvious wheezing on prednisone duoneb, proventil and mucomyst. Continue to stress IS, acappella, OOB as tolerated, etc. Tapering prednisone * OG- she clearly needs an outpatient sleep study, but reasonable to continue with QHS Bipap. * OHS- Started Provera 20 TID on 11/13 as respiratory stimulant. Discussed small clot risk. Should get better with nightly Bipap. * Cor pulmonale/PH- as a result of untreated severe hypoxemia, COPD, OG/OHS with contributions from grade I diastolic dysfunction. Not PAH so no PAH- specific therapy (eg ERAs, PDE inhibitors, etc). * Erythrocytosis- no doubt 2/2 chronic hypoxemia and at risk for stasis complications such as CVA, [place]. No further planned phlebotomy * Arrythmias on tele- possible PAF. Cards consult pending 11/17/16 16:08 Objective: Vital Signs Temp Pulse Resp BP Pulse Ox 37.2 C 81 20 114/66 97 11/17/16 11:05 11/17/16 13:58 11/17/16 13:58 11/17/16 13:58 11/17/16 13:58 Laboratory Results 11/17/16 04:25 11/17/16 04:25 11/16/16 11/17/16 11/18/16 05:59 05:59 05:59 Intake Total 1680 2640 Output Total 2550 4200 Balance -870 -1560 Physical Exam - Physical Exam General Appearance: alert, no apparent distress, obese EENT: PERRL/EOMI Neck: supple Respiratory: lungs clear, normal breath sounds, No respiratory distress Cardiac/Chest: regular rate, rhythm, edema Abdomen: normal bowel sounds, non-tender, soft, No distended Skin: warm/dry, No cyanosis Lymphatic: no adenopathy Extremities: pedal edema Neuro/Psych: alert, normal mood/affect, oriented x 3 ICD10 Worksheet Patient Problems: Problems Problem Status Onset Acute exacerbation of congestive heart failure Acute Fluid overload Acute Hypoxia Acute Polycythemia Acute
[2016-11-17] MEDS: METOPROLOL SUCCINATE XR 25 MG TAB PO SCH (21:43)
[2016-11-18] MEDS: IPRATROPIUM/ALBUTEROL 3 ML DEYVIAL IH SCH ×4 (05:15→20:22)
[2016-11-18 07:01] LABS: % IMMATURE GRANULYOCYTES 0.6 % (0.0-1.1); ABSOLUTE IMMATURE GRANULOCYTES 0.05 10^3/uL (0.00-0.10); ADD DIFF? NO; ADD MORPH? NO; ADD SCAN? NO; ATYPICAL LYMPHOCYTE FLAG 10 (0-99); FRAGMENT RBC FLAG 20 (0-99); HEMATOCRIT 57.2 % (38.0-47.0); HEMOGLOBIN 17.2 g/dL (12.6-16.3); LEFT SHIFT FLG 0 (0-99); LIPEMIA HEMOLYSIS FLAG 80 (0-99); MEAN CELL HEMOGLOBIN CONCENTR. 30.1 g/dL (32.4-36.7); MEAN CELL VOLUME 83.3 fL (81.5-99.8); MEAN PLATELET VOLUME 10.6 fL (8.7-11.7); PLATELET CLUMPS FLAG 0 (0-99); PLATELET COUNT 198 10^3/uL (150-400); RED BLOOD CELL COUNT 6.87 10^6/uL (4.18-5.33); RED CELL DISTRIBUTION WIDTH 19.9 % (11.5-15.2)
[2016-11-18 07:34] LABS: ANION GAP 6 mEq/L (8-16); CARBON DIOXIDE 34 mEq/l (22-31); CHLORIDE 96 mEq/L (97-110); CREATININE 0.6 mg/dL (0.6-1.0); GLUCOSE 79 mg/dL (70-100); POTASSIUM 4.6 mEq/L (3.5-5.2); SODIUM 136 mEq/L (134-144)
[2016-11-18 07:35] LABS: CALCIUM 9.8 mg/dL (8.5-10.4); GLOMERULAR FILTRATION RATE > 60
[2016-11-18 09:15] LABS: BASE EXCESS 8.5 mEq/L (-2.5-2.5); BICARBONATE 35 mEq/L (22-26); MEASURED OXYGEN SATURATION 95 % (92-95); PCO2 55 mmHg (34-38); PO2 77 mmHg (65-75); TCO2 37 mEq/L (23-27)
--- NOTE | 2016-11-18 09:31 | SOAPPROG ---
SOAP Progress Note Assessment/Plan: Assessment: Assessment: Patient is a 56 y/o female with history of CAD, COPD, OG, and diastolic heart failure (all these diagnoses are new), but no HTN, HLP, or DM, who presented to [facility] ER with complaints of shortness of breath and progressive weight gain and edema (initially to the feet/legs, the progressed to the abdomen). Diuresis has been successful - about 9 kg of weight lost - and overall she is feeling better. Ongoing shortness of breath, but improved. There was a wide complex arrhythmia noted on telemetry this morning (fair quality data) that was interpreted by the computer as VT. Query atrial fibrillation with aberrant conduction versus ventricular arrhythmia. No symptoms were reportedly noted with the event. CT scan, at the time of admission, without pulmonary emboli, but with notable "coronary calcifications" noted. Plan: From a cardiovascular perspective... (1) Would maintain therapy on ASA at 81 mg per day (2) Formal testing for fitting of CPAP given the degree of OG noted - strong concerns about pAF with history of OG (3) Would add low dose metoprolol tartrate (12.5 mg PO QHS) for the next month (4) Would arrange for the patient to have a nuclear stress test (CAD by CT was noted)...follow rhythms in hospital and can do as out pt when lungs are as good as can be (5) Outpatient CardioNet (30 day event monitor) should also be arranged (6) Outpatient follow up with cardiology after testing has been completed (7) Outpatient follow up with pulmonary given the COPD noted (8) Strong recommendations for smoking cessation Plan:1. moniter...out pt lexiscan if she remains stable during hospital course 11/18/16 09:31 Subjective: no cv c/o.. Objective: Vital Signs Temp Pulse Resp BP Pulse Ox 36.9 C 82 17 138/83 H 93 11/18/16 08:10 11/18/16 08:10 11/18/16 08:10 11/18/16 08:10 11/18/16 08:10 Laboratory Results 11/18/16 06:40 11/18/16 06:40 11/17/16 11/18/16 11/19/16 05:59 05:59 05:59 Intake Total 2640 2400 Output Total 4200 3250 Balance -1560 -850 ICD10 Worksheet Patient Problems: Problems Problem Status Onset Acute exacerbation of congestive heart failure Acute Fluid overload Acute Hypoxia Acute Polycythemia Acute
[2016-11-18] MEDS: ACETAMINOPHEN 325 MG TAB PO SCH (10:23)
[2016-11-18] MEDS: ENOXAPARIN 40 MG/0.4 ML SYR SC SCH ×2 (10:36→19:41)
[2016-11-18] MEDS: SENNOSIDES/DOCUSATE SODIUM TAB PO SCH ×2 (10:37→19:43)
[2016-11-18] MEDS: NICOTINE 21 MG/24 HR PATCH TD SCH (10:37)
[2016-11-18] MEDS: buPROPion SR 150 MG TAB PO SCH ×2 (10:38→19:41)
[2016-11-18] MEDS: ASPIRIN 81 MG CHEWABLE TAB PO SCH (10:39)
[2016-11-18] MEDS: predniSONE 20 MG TAB PO SCH (10:39)
[2016-11-18] MEDS: FUROSEMIDE 40 MG TAB PO SCH (10:40)
[2016-11-18] MEDS: guaiFENesin 600 MG TAB.ER PO SCH ×2 (10:40→19:40)
[2016-11-18] MEDS: ACETYLCYSTEINE 20% IH/PO 30 ML VIAL IH SCH ×3 (12:03→17:54)
[2016-11-18] MEDS: medroxyPROGESTERone 10 MG TAB PO SCH (12:21)
--- NOTE | 2016-11-18 14:50 | HOSPPROG ---
Hospitalist Progress Note Assessment/Plan: 56 yo F with longstanding tobacco use hx as well as likely undiagnosed joshua presenting with acute on chronic respiratory failure and cor pulmonale # acute on chronic hypoxic/hypercarbic respiratory failure: presenting initially with o2 in the 60s and only mildly symptomatic suggesting that this is an acute on chronic picture, pco2 of 75 initially. 2/2 underlying untreated copd, joshua and ohs. Trialed cpap last night and abg showing pco2 of 55 this am. Daughter very concerned that she should be continued on bipap rather than trialed on cpap--will defer to pulmonary. Will follow daily abg. # copd with acute exacerbation: continue scheduled nebs, prednisone now being tapered. # cor pulmonale: in setting of chronic hypoxia as above, on echo only mild pulm htn but clinically with significant lower extremity edema related to underlying chronic hypoxia and joshua/ohs. Lasix daily with caution. # JOSHUA: will need to go home on cpap or bipap however again given no insurance unclear if this is possible, started on medroxyprogesterone for resp stimulus # wct: evaluated by cardiology, consideration for likely a fib w/aberrancy rather than VT. Does have e/o CAD on CT scan, and OP stress test likely indicated. Started on metoprolol at hs--will monitor respiratory status on bb. # venous stasis: with hyperpigmentation of ble c/w chronic venous stasis, no significant complications # erythrocytosis: significant and related to chronic hypoxia, continue to monitor, daily asa # dispo: IP status, will continue ICU for now until o2 saturations improve care plan reviewed with family present at bedside--daughter with many questions about bipap versus cpap and given concerns about how they will pay for equipment as op with no insurance, suggested that if cpap works this may be a reasonable option. She will discuss further with pulm. Subjective: no significant overnight events, had 02 off briefly and desaturated to 70s Objective: Vital Signs Temp Pulse Resp BP Pulse Ox 36.6 C 81 14 124/81 H 94 11/18/16 13:30 11/18/16 13:30 11/18/16 13:30 11/18/16 13:30 11/18/16 13:30 Laboratory Results 11/18/16 06:40 11/18/16 06:40 11/17/16 11/18/16 11/19/16 05:59 05:59 05:59 Intake Total 2640 2400 240 Output Total 4200 3250 Balance -1560 -850 240 awake alert nad anicteric op clear rrr no mrg dec bs scattered wheeze soft nt nd pitting edema ble warm dry hyperpigmented ble oriented approrpiate - Time Spent With Patient Time Spent with Patient: greater than 35 minutes Time Spent with Patient: Greater than 35 minutes spent on this patients care, greater than 50% of time spent counseling, educating, and coordinating care regarding the above mentioned plan. ICD10 Worksheet Patient Problems: Problems Problem Status Onset Acute exacerbation of congestive heart failure Acute Fluid overload Acute Hypoxia Acute Polycythemia Acute
[2016-11-18] MEDS: HYDROCODONE/APAP 5/325 TAB PO PRN (17:58)
[2016-11-18] MEDS: METOPROLOL SUCCINATE XR 25 MG TAB PO SCH (19:40)
[2016-11-19 07:48] LABS: % IMMATURE GRANULYOCYTES 0.4 % (0.0-1.1); ABSOLUTE IMMATURE GRANULOCYTES 0.04 10^3/uL (0.00-0.10); ADD DIFF? NO; ADD MORPH? YES; ADD SCAN? NO; ATYPICAL LYMPHOCYTE FLAG 0 (0-99); HEMATOCRIT 58.5 % (38.0-47.0); HEMOGLOBIN 17.8 g/dL (12.6-16.3); LEFT SHIFT FLG 0 (0-99); LIPEMIA HEMOLYSIS FLAG 80 (0-99); MEAN CELL HEMOGLOBIN 25.4 pg (27.9-34.1); MEAN CELL HEMOGLOBIN CONCENTR. 30.4 g/dL (32.4-36.7); MEAN CELL VOLUME 83.3 fL (81.5-99.8); MEAN PLATELET VOLUME 10.8 fL (8.7-11.7); PLATELET CLUMPS FLAG 0 (0-99); PLATELET COUNT 195 10^3/uL (150-400); RED BLOOD CELL COUNT 7.02 10^6/uL (4.18-5.33)
[2016-11-19 08:09] LABS: ANION GAP 6 mEq/L (8-16); CARBON DIOXIDE 34 mEq/l (22-31); CHLORIDE 98 mEq/L (97-110); CREATININE 0.6 mg/dL (0.6-1.0); GLOMERULAR FILTRATION RATE > 60; GLUCOSE 90 mg/dL (70-100); MAGNESIUM 2.3 mg/dL (1.6-2.3); POTASSIUM 4.7 mEq/L (3.5-5.2); SODIUM 138 mEq/L (134-144)
[2016-11-19 08:15] LABS: BASE EXCESS 6.4 mEq/L (-2.5-2.5); BICARBONATE 34 mEq/L (22-26); MEASURED OXYGEN SATURATION 95 % (92-95); PCO2 57 mmHg (34-38); PO2 81 mmHg (65-75); TCO2 35 mEq/L (23-27)
[2016-11-19] MEDS: ACETYLCYSTEINE 20% IH/PO 30 ML VIAL IH SCH ×3 (08:27→16:31)
[2016-11-19] MEDS: IPRATROPIUM/ALBUTEROL 3 ML DEYVIAL IH SCH ×4 (08:28→21:02)
[2016-11-19] MEDS: NICOTINE 21 MG/24 HR PATCH TD SCH (09:15)
[2016-11-19] MEDS: medroxyPROGESTERone 10 MG TAB PO SCH (09:16)
[2016-11-19] MEDS: guaiFENesin 600 MG TAB.ER PO SCH ×2 (09:16→22:12)
[2016-11-19] MEDS: ENOXAPARIN 40 MG/0.4 ML SYR SC SCH ×2 (09:16→22:09)
[2016-11-19] MEDS: ACETAMINOPHEN 325 MG TAB PO SCH (09:17)
[2016-11-19] MEDS: predniSONE 20 MG TAB PO SCH (09:17)
[2016-11-19] MEDS: ASPIRIN 81 MG CHEWABLE TAB PO SCH (09:17)
[2016-11-19] MEDS: FUROSEMIDE 40 MG TAB PO SCH (09:17)
[2016-11-19] MEDS: buPROPion SR 150 MG TAB PO SCH ×2 (09:19→22:12)
[2016-11-19] MEDS: SENNOSIDES/DOCUSATE SODIUM TAB PO SCH ×2 (09:21→22:10)
[2016-11-19 09:36] LABS: FRAGMENT RBC FLAG 200 (0-99); RED CELL DISTRIBUTION WIDTH 20.4 % (11.5-15.2)
--- NOTE | 2016-11-19 10:04 | PDCARPN ---
Cardiology Progress Note Chief Complaint: Shortness of breath Pedal edema Assessment/Plan: Assessment: 1. COPD 2. Cor pulmonale 3. coronary calcification on CT 4. 8 beat episode of irregular wide complex tachycardia rate between 130 to 150 beats per minute Plan: 1. Management of pulmonary disease per hospitalist team. Patient is committed to giving up smoking which is commendable. 2. Management of cor pulmonale with diuresis per hospitalist team. BUN is elevated, monitor carefully with ongoing diuresis. 3. schedule outpatient myocardial perfusion stress test. 4. 8 bt WCT is consistent with atrial tachycardia with aberrancy. We will sign off for now. Please re-consult if necessary. Please schedule Cardiology follow-up and stress test as outpatient upon patient discharge. 11/19/16 10:02 Subjective: reports improvement in symptoms, [facility] And sister are in the room. Time Spent With Patient: 10 minutes Objective: Vital Signs (8 Hrs) Temp Pulse Resp BP Pulse Ox 11/19/16 08:00 36.1 C 74 14 111/65 91 L 11/19/16 04:00 36.5 C 80 18 123/64 H 91 L Intake/Output (24 Hrs) 11/17/16 11/18/16 11/19/16 11:59 11:59 11:59 Intake Total 2640 2640 1640 Output Total 4200 3250 3150 Balance -1560 -610 -1510 Intake: Oral (ml) 2640 2640 1640 Output: Urine (ml) 4200 3250 3150 Toilet 4200 3250 3150 Other: Weight 110.813 kg 109.2 kg 108 kg Intake Quantity Yes Sufficient Number of Voids Toilet 4 1 Result Diagrams: 11/19/16 06:10 11/19/16 06:10 ICD10 Worksheet Patient Problems: Problems Problem Status Onset Acute exacerbation of congestive heart failure Acute Hypoxia Acute Fluid overload Acute Polycythemia Acute
[2016-11-19 10:28] LABS: HYPOCHROMIA 1+; MICROCYTES 1+
[2016-11-19 10:29] LABS: PLATELET ESTIMATE ADEQUATE (ADEQ)
[2016-11-19] MEDS ORDERED: CALCIUM CARBONATE 500 MG CHEWABLE TAB PO PRN (11:39)
--- NOTE | 2016-11-19 14:46 | PDINTPN ---
[employer] Progress Note Assessment/Plan: Assessment/plan: 56 F admitted 11/10/16 with SOB, found to have acute on chronic respiratory failure with cor pulmonale, severe hypoxia (66% RA on admission) and anasarca. She has a significant smoking history and COPD as well as OG/OHS with severe erythrocytosis. New to me 11/13/16. * Acute on chronic respiratory failure with hypoxia and hypercapnia- This likely the result of COPD/OG overlap syndrome. She has been compliant with bipap which I believe she needs prior to dc. She clearly has severe hypoventilation as evidenced by her pCO2 of 76 on admission * COPD- stable at the moment without obvious wheezing on prednisone duoneb, proventil and mucomyst. Continue to stress IS, acappella, OOB as tolerated, etc. Tapering prednisone * OG- she clearly needs an outpatient sleep study, but reasonable to continue with [facility] Bipap. * OHS- Started Provera 20 TID on 11/13 as respiratory stimulant. Discussed small clot risk. Should get better with nightly Bipap. * Cor pulmonale/PH- as a result of untreated severe hypoxemia, COPD, OG/OHS with contributions from grade I diastolic dysfunction. Not PAH so no PAH- specific therapy (eg ERAs, PDE inhibitors, etc). * Erythrocytosis- no doubt 2/2 chronic hypoxemia and at risk for stasis complications such as CVA, LA. No further planned phlebotomy * Arrythmias on tele- consistent with atrial tachycardia with abberancy per cards. Tolerating low dose metoprolol now. * * She is apparently close to dc home and will get bipap purchased from [facility]. The Rx should be identical to what she was getting here on the [facility] Bipap device. She expects her insurance to get started within 4 weeks. She can followup with me at that time with complete PFTs and we will arrange for a sleep study then. 11/17/16 16:08 11/19/16 14:42 Objective: Vital Signs Temp Pulse Resp BP Pulse Ox 36.9 C 83 16 110/75 93 11/19/16 12:22 11/19/16 12:22 11/19/16 12:22 11/19/16 12:22 11/19/16 12:22 Laboratory Results 11/19/16 06:10 11/19/16 06:10 11/18/16 11/19/16 11/20/16 05:59 05:59 05:59 Intake Total 2400 9590 Output Total 4229 9990 Balance -850 -1270 Physical Exam - Physical Exam General Appearance: WD/WN, alert, no apparent distress, obese EENT: PERRL/EOMI Neck: supple Respiratory: lungs clear, normal breath sounds, No respiratory distress Cardiac/Chest: regular rate, rhythm, edema Abdomen: normal bowel sounds, non-tender, soft, No distended Skin: warm/dry, No normal color (bilateral LE erythema), No cyanosis Lymphatic: no adenopathy Extremities: pedal edema Neuro/Psych: alert, normal mood/affect, oriented x 3 ICD10 Worksheet Patient Problems: Problems Problem Status Onset Acute exacerbation of congestive heart failure Acute Fluid overload Acute Hypoxia Acute Polycythemia Acute
--- NOTE | 2016-11-19 15:51 | HOSPPROG ---
Hospitalist Progress Note Assessment/Plan: 56 yo F with longstanding tobacco use hx as well as likely undiagnosed joshua presenting with acute on chronic respiratory failure and cor pulmonale # acute on chronic hypoxic/hypercarbic respiratory failure: presenting initially with o2 in the 60s and only mildly symptomatic suggesting that this is an acute on chronic picture, pco2 of 75 initially--has come down to the 50s on bipap at HS. 2/2 underlying untreated copd, joshua and ohs. Will perform nocturnal pulse ox tonight with plans to dc home with bipap in am. # copd with acute exacerbation: continue scheduled nebs, prednisone now being tapered slowly # cor pulmonale: in setting of chronic hypoxia as above, on echo only mild pulm htn but clinically with significant lower extremity edema related to underlying chronic hypoxia and joshua/ohs. Lasix daily, monitoring HCO3. # JOSHUA: as per problem 1, nocturnal pulse ox tonight, will need formal sleep study at some point, complicated by lack of insurance, started on medroxyprogesterone for resp stimulus # wct: evaluated by cardiology, consideration for likely a fib w/aberrancy rather than VT. Does have e/o CAD on CT scan, and OP stress test indicated. Started on metoprolol at hs and will f/u with cardiology after dc. # venous stasis: with hyperpigmentation of ble c/w chronic venous stasis, no significant complications, will add compression stockings to see if she can tolerate # erythrocytosis: significant and related to chronic hypoxia, has improved s/p phlebotomy # dispo: IP status, will plan to dc likely in am so long as all equipment needed is able to be obtained care plan reviewed with family present at bedside--reviewed care plan with CM/ RT. Questions of family and patient answered, especially questions regarding f/ u care plan and payment for things like oxygen and bipap Subjective: no significant overnight events, patient has had some sadness aroung thinking maybe she could go home today and then not being able to go, productive cough, continued lower extremity swelling Objective: Vital Signs Temp Pulse Resp BP Pulse Ox 36.7 C 82 19 132/75 H 91 L 11/19/16 15:02 11/19/16 15:02 11/19/16 15:02 11/19/16 15:02 11/19/16 15:02 Laboratory Results 11/19/16 06:10 11/19/16 06:10 11/18/16 11/19/16 11/20/16 05:59 05:59 05:59 Intake Total 2400 1880 Output Total 3250 3150 Balance -850 -1270 awake alert nad anicteric op clear rrr no mrg dec bs scattered wheeze soft nt nd pitting edema ble warm dry hyperpigmented ble oriented approrpiate - Time Spent With Patient Time Spent with Patient: greater than 35 minutes Time Spent with Patient: Greater than 35 minutes spent on this patients care, greater than 50% of time spent counseling, educating, and coordinating care regarding the above mentioned plan. - Pending Discharge Pending Discharge Within 24 Hours: Yes Pending Discharge Date: 11/20/16 Pending Discharge Time: 11:00 ICD10 Worksheet Patient Problems: Problems Problem Status Onset Acute exacerbation of congestive heart failure Acute Fluid overload Acute Hypoxia Acute Polycythemia Acute
[2016-11-19] MEDS: HYDROCODONE/APAP 5/325 TAB PO PRN ×2 (16:28→22:27)
[2016-11-19] MEDS: METOPROLOL SUCCINATE XR 25 MG TAB PO SCH (22:10)
[2016-11-19] MEDS ORDERED: CANN-EASE 2 GM TUBE TP PRN (22:27)
[2016-11-20] MEDS: ACETYLCYSTEINE 20% IH/PO 30 ML VIAL IH SCH ×2 (03:54→12:32)
[2016-11-20] MEDS: IPRATROPIUM/ALBUTEROL 3 ML DEYVIAL IH SCH ×2 (03:54→12:33)
[2016-11-20 04:16] LABS: % IMMATURE GRANULYOCYTES 0.5 % (0.0-1.1); ABSOLUTE IMMATURE GRANULOCYTES 0.05 10^3/uL (0.00-0.10); ADD DIFF? NO; ADD MORPH? YES; ADD SCAN? NO; ATYPICAL LYMPHOCYTE FLAG 0 (0-99); FRAGMENT RBC FLAG 20 (0-99); HEMATOCRIT 58.8 % (38.0-47.0); HEMOGLOBIN 17.3 g/dL (12.6-16.3); LEFT SHIFT FLG 0 (0-99); LIPEMIA HEMOLYSIS FLAG 70 (0-99); MEAN CELL HEMOGLOBIN CONCENTR. 29.4 g/dL (32.4-36.7); MEAN CELL VOLUME 84.8 fL (81.5-99.8); MEAN PLATELET VOLUME 11.3 fL (8.7-11.7); PLATELET CLUMPS FLAG 0 (0-99); PLATELET COUNT 187 10^3/uL (150-400); RED BLOOD CELL COUNT 6.93 10^6/uL (4.18-5.33)
[2016-11-20 04:18] LABS: RED CELL DISTRIBUTION WIDTH 20.5 % (11.5-15.2)
[2016-11-20 04:26] LABS: BASE EXCESS 5.6 mEq/L (-2.5-2.5); BICARBONATE 33 mEq/L (22-26); MEASURED OXYGEN SATURATION 93 % (92-95); PCO2 59 mmHg (34-38); PO2 75 mmHg (65-75); TCO2 35 mEq/L (23-27)
[2016-11-20 04:39] LABS: ANION GAP 8 mEq/L (8-16); CALCIUM 9.6 mg/dL (8.5-10.4); CARBON DIOXIDE 34 mEq/l (22-31); CHLORIDE 99 mEq/L (97-110); CREATININE 0.7 mg/dL (0.6-1.0); GLOMERULAR FILTRATION RATE > 60; GLUCOSE 73 mg/dL (70-100); MAGNESIUM 2.3 mg/dL (1.6-2.3); POTASSIUM 4.6 mEq/L (3.5-5.2); SODIUM 141 mEq/L (134-144)
[2016-11-20 04:54] LABS: PLATELET ESTIMATE ADEQUATE (ADEQ)
[2016-11-20 04:55] LABS: HYPOCHROMIA 1+; MICROCYTES 1+
[2016-11-20] MEDS: NICOTINE 21 MG/24 HR PATCH TD SCH (09:37)
[2016-11-20] MEDS: predniSONE 20 MG TAB PO SCH (09:38)
[2016-11-20] MEDS: ENOXAPARIN 40 MG/0.4 ML SYR SC SCH (09:38)
[2016-11-20] MEDS: guaiFENesin 600 MG TAB.ER PO SCH (09:39)
[2016-11-20] MEDS: medroxyPROGESTERone 10 MG TAB PO SCH (09:39)
[2016-11-20] MEDS: FUROSEMIDE 40 MG TAB PO SCH (09:39)
[2016-11-20] MEDS: ASPIRIN 81 MG CHEWABLE TAB PO SCH (09:39)
[2016-11-20] MEDS: ACETAMINOPHEN 325 MG TAB PO SCH (09:40)
[2016-11-20] MEDS: buPROPion SR 150 MG TAB PO SCH (09:41)
[2016-11-20] MEDS: SENNOSIDES/DOCUSATE SODIUM TAB PO SCH (09:41)
[2016-11-20 12:12] VITALS: BP 102/72; PULSE 89; TEMP 97.6
[2016-11-20 12:40] VITALS: RESP 18; O2SAT 92
--- NOTE | 2016-11-20 15:01 | PDDCSUM ---
Discharge Summary Discharge Summary: Dates of service 11/10-11/20/16 Discharge dx: # acute on chronic hypoxic/hypercarbic resp failure # copd # joshua/ohs # cor pulmonale # CAD by CT scan # erythrocytosis Consultations: pulmonary, cardiology Procedures performed: echo, nocturnal pulse ox study, chest cta, picc placement , phlebotomized x 500ml Hospital course by problem: # acute on chronic hypoxic/hypercarbic respiratory failure: presenting initially with o2 in the 60s and only mildly symptomatic suggesting that this is an acute on chronic picture, pco2 of 75 initially--has come down to the 50s on bipap at HS. 2/2 underlying untreated copd, joshua and ohs. Will dc on 5L of o2. Needs formal sleep study as below. # copd with acute exacerbation:dc on ipratroprium and albuterol MDI, prednisone taper, will need PFTs performed on f/u with pulmonary # cor pulmonale: in setting of chronic hypoxia as above, on echo only mild pulm htn but clinically with significant lower extremity edema related to underlying chronic hypoxia and joshua/ohs. Lasix daily, monitoring HCO3. # JOSHUA: as per problem 1, nocturnal pulse ox showing desats to < 85% but for less than 5 minutes overall so will not need bipap at this point, will need formal sleep study in the near future, dc on medroxyprogesterone for resp stimulus # wct: evaluated by cardiology, consideration for likely a fib w/aberrancy rather than VT. Does have e/o CAD on CT scan, and OP stress test indicated. Started on metoprolol at hs and will f/u with cardiology after dc. # venous stasis: with hyperpigmentation of ble c/w chronic venous stasis, no significant complications, will add compression stockings to see if she can tolerate # erythrocytosis: significant and related to chronic hypoxia, has improved s/p phlebotomy DC home plans to get [employer] insurance and will f/u to establish care with pcp and pulmonary in the next month Items for f/u: PFT, sleep study, stress test Meds: see EHR > 45 min spent in dc more than half in face to face counseling of patient and her family present at bedside regarding f/u care plans
[2016-11-22] MEDS ORDERED: predniSONE 20 MG TAB PO SCH (09:00)
[2016-11-27] MEDS ORDERED: predniSONE 10 MG TAB PO SCH (09:00)
== END 2016-11-20 15:27 | disposition home or self-care (01) | DRG 189 ==
LOC: OBSVTOIN 05:53 → F2W 08:15 → F2N 11-12 16:06 → F2W 11-17 13:52
PROVIDERS: ADMIT Internal Medicine; ATTEND Internal Medicine
PROC: 02HV33Z Insertion of Infusion Device into Superior Vena Cava, Percutaneous Approach (ICD-10-PCS; principal; 2016-11-13)
DX: J96.21 Acute and chronic respiratory failure with hypoxia (principal); J96.22 Acute and chronic respiratory failure with hypercapnia; J44.1 Chronic obstructive pulmonary disease with (acute) exacerbation; G47.33 Obstructive sleep apnea (adult) (pediatric); I27.81 Cor pulmonale (chronic); D75.1 Secondary polycythemia; I50.31 Acute diastolic (congestive) heart failure; I27.2 Other secondary pulmonary hypertension; R59.0 Localized enlarged lymph nodes; T38.0X5A Adverse effect of glucocorticoids and synthetic analogues, initial encounter; R44.3 Hallucinations, unspecified; I87.8 Other specified disorders of veins; F17.210 Nicotine dependence, cigarettes, uncomplicated; M17.0 Bilateral primary osteoarthritis of knee; E66.2 Morbid (severe) obesity with alveolar hypoventilation; Z68.38 Body mass index [BMI] 38.0-38.9, adult; Z82.49 Family history of ischemic heart disease and other diseases of the circulatory system; I25.10 Atherosclerotic heart disease of native coronary artery without angina pectoris; I48.91 Unspecified atrial fibrillation
CPT/HCPCS: 92610-GN; 96374; 97110-GP; 97116-GP; 97162-GP; 97166-GO; 97530-GO; 97530-GP; 97535-GO; C1751; J0456; J1650; J1940; Q9967